=== PATIENT | male | born 1960 | race Caucasian/White ===

== ENCOUNTER 2020-08-17 14:52 | Outpatient (REF) | payer MEDICAID, SELFPAY | END 2020-08-17 14:53 | disposition home or self-care (01) | LOC: HO.LAB 14:52 | PROVIDERS: Visit Provider Internal Medicine | DX: Z20.828 Contact with and (suspected) exposure to other viral communicable diseases (principal) | CPT/HCPCS: C9803; U0003 ==

== ENCOUNTER → 2020-08-25 09:42 | Outpatient (BNVA) | payer MEDICAID, SELFPAY | PROVIDERS: PCP Internal Medicine; Visit Provider Physician Assistant | DX: Z76.89 Persons encountering health services in other specified circumstances (principal) ==

== ENCOUNTER 2021-04-15 14:16 | Outpatient (REF) | payer MEDICAID, SELFPAY | END 2021-04-15 14:17 | disposition home or self-care (01) | LOC: HO.LAB 14:16 | PROVIDERS: Visit Provider Internal Medicine | DX: Z20.822 Contact with and (suspected) exposure to COVID-19 (principal) | CPT/HCPCS: C9803; U0003; U0005 ==

== ENCOUNTER 2021-04-21 10:05 | Emergency (ER) | payer MEDICAID, SELFPAY ==
--- NOTE | ~2021-04-21 | CT_ITS ---
EXAMINATION: CT FACIAL BONES WITHOUT CONTRAST CLINICAL INFORMATION: Trauma. COMPARISON: None TECHNIQUE: Axial 3 mm thin and reformatted 1.5 mm thin sagittal coronal images of facial bones were obtained. This CT examination was performed using dose optimization techniques as appropriate, variously including the following: *Automated exposure control *Adjustment of mA and/or kV according to patient size (this includes techniques or standardized protocols for targeted exams where dose is matched to indication/reason for exam; i.e. extremities or head) *Use of iterative reconstruction technique DLP: 452 mGy-cm FINDINGS: There is no acute maxillofacial fracture. The pterygoid plates are intact. The zygomatic arches are intact. The lamina papyracea are intact. The orbital rims are intact. The paranasal sinuses are well-aerated. No air-fluid levels are seen. There is moderate deviation of the nasal septum to the left. The ostiomeatal complexes are clear. There is mild darell bullosa of left middle turbinate. The lamina papyracea are intact. The ethmoid roofs are symmetric. The carotid canals are normally covered by bone. No maxillary periapical disease is seen. The mastoid air cells and visualized middle ear cavities are well-aerated. The orbits are normal. The TMJs are unremarkable. The imaged portions of the brain demonstrate no acute abnormality. CT/CT facial bones wo con IMPRESSION: There is no visible maxillofacial and nasal bone fracture. There is moderate deviation of nasal septum to the left with a small bony spur. There is darell bullosa left middle turbinate. Visualized mandible is intact. The TM joints are intact.
[2021-04-21 10:37] VITALS: BP 123/70; PULSE 65; RESP 16; TEMP 36.6; O2SAT 98; BMI 28.2
--- NOTE | 2021-04-21 10:49 | ED_ITS ---
HPI - General Adult General Chief complaint: General Medical Stated complaint: facial pain Time Seen by Provider: 04/21/21 10:44 Source: patient Mode of arrival: ambulatory Limitations: no limitations History of Present Illness HPI narrative: 60 y/o [place]aguayan-speaking male presents to the ER with nose pain after he was accidentally elbowed in the nose in the middle of the night by his 8yo child who was sleeping with him. He denies nose bleed at the time, just pain. He woke up this morning with persistent pain and some swelling. He came to the ER for evaluation. He is not on anticoagulation. No other injuries. Denies headache. MD complaint: nasal trauma Onset (ago): hour(s) (8) Location: face Radiation: non-radiation Severity: severe Severity scale (1-10): 9 Quality: aching Pain Consistency: constant Relieving factors: cold therapy Exacerbating factors: other (palpatiokn) Associated symptoms: denies other symptoms Treatments prior to arrival: none Related Data Home Medications Medication Instructions Recorded Confirmed albuterol sulfate 90 mcg/actuation 2 puff INHALATION QID 11/17/20 11/17/20 aerosol inhaler fluticasone propionate 100 1 puff PO BID 11/17/20 11/17/20 mcg/actuation blister powder for inhalation (Flovent Diskus) tiotropium bromide 2.5 2 puff INHALATION DAILY 11/17/20 11/17/20 mcg/actuation mist for inhalation (Spiriva Respimat) Previous Rx's Medication Instructions Recorded bisacodyl 5 mg tablet,delayed 10 mg PO ONCE 1 Days #2 tab 10/07/20 release (Dulcolax (bisacodyl)) polyethylene glycol 3350 17 238 g PO ONCE 1 Days #238 g 10/07/20 gram/dose oral powder (Miralax) bisacodyl 5 mg tablet 5 mg PO BEDTIME 2 Days #2 tab 11/22/20 polyethylene glycol 3350 17 17 g PO DAILY 1 Days #238 g 11/22/20 gram/dose oral powder (Miralax) Allergies Allergy/AdvReac Type Severity Reaction Status Date / Time No Known Allergies Allergy Verified 09/27/20 11:37 Review of Systems Constitutional: Constitutional: Denies chills, Denies fever(s) and Denies headache(s) Eyes: Eyes: Reports no additional eye complaints ENT: Denies dizziness, Reports facial pain, Denies headache(s), Denies epistaxis, Denies mouth pain, Denies nasal congestion, Denies nasal discharge, Denies nasal obstruction, Denies neck pain and Reports nose pain Cardiovascular: Cardiovascular: Denies chest pain Respiratory: Respiratory: Denies cough Gastrointestinal: Gastrointestinal: Denies nausea and Denies vomiting Musculoskeletal: Musculoskeletal: Denies neck pain Integumentary/Breasts: Skin/Breast: Denies wounds Neurologic: Denies dizziness and Denies headache(s) Hematologic/Lymphatic: Hematologic/Lymphatic: Denies easy bleeding and Denies easy bruising PMFSH Past Medical History Attestation statement: The following information was validated with the patient. Medical History (Updated 04/21/21 @ 12:11 by MARCIA Rosa) Hx of hepatitis Insomnia Shortness of breath Surgical History (Updated 09/27/20 @ 11:38 by Audelia Cahcon, LIANET) No history of previous surgery Family History Family History (Updated 08/25/20 @ 09:49 by Jennifer Gaston PA-C) Father Kidney disease Mother No problems noted. Social History Social History (Updated 11/17/20 @ 12:40 by Audelia Chacon, LIANET) Household Members: Children Alcohol intake: never Cigarettes Per Day: 7 Advance Directives: No Advance Directives Information Provided: No Current occupational status: disabled Physical Exam Vital Signs: Vital Signs: Last Vital Signs Temp 98.3 F 04/21/21 11:04 Pulse 59 04/21/21 11:04 Resp 15 04/21/21 11:04 BP 129/63 04/21/21 11:04 Pulse Ox 97 04/21/21 11:04 Body Mass Index 28.2 Const: General: cooperative, healthy appearing, comfortable and no acute distress Nutritional Appearance: average body habitus Orie ntation/consciousness: patient oriented x3 Limitations: language barrier HENMT: Head: Yes normal to inspection, Yes normocephalic and Yes atraumatic Ears: hearing grossly normal bilaterally and external ears normal General nose exam: Abnormal external nose present nasal tenderness and nasal swelling, Abnormal nasal septum present hematoma on the left, no nasal discharge noted and no epistaxis Face and sinus: Yes normal facial exam, Yes sinuses nontender and Yes face symmetric Mouth: Normal oral and palatal mucosa present, lip normal and tongue normal Teeth and gingiva: dentition normal and gingiva normal Throat: Yes posterior oropharynx normal, Yes tonsils normal and Yes uvula midline Eyes: General: appearance normal, both eyes and all related structures Pupils: Equal, round and reactive pupils present EOM: EOMs intact bilaterally Neck: Neck: Yes normal visual inspection, Yes full ROM and Yes no lymphadenopathy Chest: Chest palpation & inspection: normal inspection of the chest Resp: Effort & Inspection: normal respiratory effort and able to speak in complete sentences Skin: General skin exam: no rashes or lesions noted Neuro: General: patient oriented x3 and gait normal Cranial nerves: Yes Equal, round and reactive pupils present Extrem: General: Yes normal to inspection Course Course Course Narrative: 60 y/o male presenting with nasal pain after his child accidentally elbowed him in the face in the middle of this night. Swelling of left sided terbinate noted but pink, no deep purple discoloration. Will get CT facial bones to assess for fracture. Reevaluation(s) Reevaluation #1: CT without fracture. Left septal deviation with darell bullosa left middle turbinate. - air of septum that will reaborb. No intervention required at this time. He is stable for discharge home with supportive care. Critical Care Time Critical Care Time Critical Care Time: No Discharge Plan Discharge Clinical Impression: Contusion of nose Qualifiers: Encounter type: initial encounter Qualified Code(s): S00.33XA - Contusion of nose, initial encounter Patient Disposition: Home, Self-Care Instructions: Nasal Contusion (ED) Additional Instructions: Your CT scan did not show any broken bone. Use ice to the area several times per day. Take Motrin and/or Tylenol as needed for pain. Follow up with your doctor as needed. Prescriptions: No Action bisacodyl [Dulcolax (bisacodyl)] 5 mg tablet,delayed release (DR/EC) 10 mg PO ONCE 1 Days Qty: 2 RF: 0 polyethylene glycol 3350 [Miralax] 17 gram/dose powder 238 g PO ONCE 1 Days Qty: 238 RF: 0 bisacodyl 5 mg tablet 5 mg PO BEDTIME 2 Days Qty: 2 RF: 0 polyethylene glycol 3350 [Miralax] 17 gram/dose powder 17 g PO DAILY 1 Days Qty: 238 RF: 0 Flovent Diskus 100 mcg/actuation blister with device 1 puff PO BID RF: 0 albuterol sulfate 90 mcg/actuation HFA aerosol inhaler 2 puff inhalation QID RF: 0 Spiriva Respimat 2.5 mcg/actuation mist 2 puff inhalation DAILY RF: 0 Print Language: Paraguayan
[2021-04-21 11:04] VITALS: BP 129/63; PULSE 59; RESP 15; TEMP 36.8; O2SAT 97
[2021-04-21] MEDS: Acetaminophen 325 MG TABLET 975 MG PO (11:13)
== END 2021-04-21 12:24 | disposition home or self-care (01) ==
PROVIDERS: Emergency Provider Emergency Medicine
DX: S00.33XA Contusion of nose, initial encounter (principal); W50.0XXA Accidental hit or strike by another person, initial encounter; Y93.84 Activity, sleeping; Y92.032 Bedroom in apartment as the place of occurrence of the external cause; Y99.9 Unspecified external cause status
CPT/HCPCS: 70486; 99284

== ENCOUNTER → 2021-05-12 10:20 | Outpatient (BNVA) | payer MEDICAID, SELFPAY | PROVIDERS: PCP Internal Medicine; Referring Provider Internal Medicine; Visit Provider Physician Assistant ==

== ENCOUNTER → 2021-08-02 09:07 | Day surgery (SDC) | payer MEDICAID, SELFPAY ==
[2021-07-26 09:04] VITALS: BMI 27.7
--- NOTE | 2021-08-01 10:04 | P.CONAN_ITS ---
HPI - Anesthesia Eval Consult details Narrative: 61yo M for Colonoscopy PMFSH Active Problems Active Problems: All Active Problems (Updated 07/26/21 @ 09:07 by Kathryn Nguyen RN) Encounter for screening colonoscopy (Acute) Asthma (Acute) Past Medical History Medical History (Updated 07/26/21 @ 09:07 by Kathryn Nguyen RN) COPD (chronic obstructive pulmonary disease) COVID-19 vaccine series completed Depression Hx of hepatitis Hyperlipidemia Insomnia Liver fibrosis Shortness of breath Family History Family History Father Kidney disease Mother No problems noted. Surgical History Surgical History No history of previous surgery Social History Social History Household Members: Children Household Members Other:: single father w/children ages 6 & 8 Are you a primary long term care administrator to a significant other at home: Yes Do you presently have visiting nurse or other home services: No Alcohol intake: never Patient Tobacco Use Status: Current everyday Tobacco user Tobacco use type: Cigarette Cigarettes Per Day: 5 Years Smoked: 42 Current occupational status: disabled Meds Allergies Allergy/AdvReac Type Severity Reaction Status Date / Time No Known Allergies Allergy Verified 07/25/21 10:59 Home Medications Medication Instructions Recorded Confirmed Last Taken Type albuterol sulfate 90 mcg/actuation 2 puff INHALATION QID 11/17/20 07/25/21 Unknown History aerosol inhaler fluticasone propionate 100 1 puff PO BID 11/17/20 07/25/21 Unknown History mcg/actuation blister powder for inhalation (Flovent Diskus) tiotropium bromide 2.5 2 puff INHALATION DAILY 11/17/20 07/25/21 Unknown History mcg/actuation mist for inhalation (Spiriva Respimat) hydroxyzine HCl 25 mg tablet 1 tab PO DAILY PRN 07/25/21 07/25/21 Unknown History montelukast 10 mg tablet 1 tab PO QPM 07/25/21 07/25/21 Unknown History Exam Exam Date and Time: August 01, 2021 1004 Height,Weight and Vital Signs: Height 5 ft 6 in Weight 78.018 kg Assessment and Plan Assessment Anesthesia Assessment: Chart Reviewed
--- NOTE | 2021-08-02 09:27 | PC.NURSE ---
patient ate lasagna yesterday 1600, still passing stool. Dr dimas says to reschedule. vince, interpretor went over prep instructions in detail. patient verbalized understanding
== END ==
PROVIDERS: Visit Provider Internal Medicine Gastroenterology
DX: Z12.11 Encounter for screening for malignant neoplasm of colon (principal); Z53.8 Procedure and treatment not carried out for other reasons

== ENCOUNTER 2023-12-24 09:46 | Outpatient (REF) | payer MEDICAID, SELFPAY ==
[2023-12-24 11:40] LABS: MANUAL DIFF FLAG NO
[2023-12-24 11:47] LABS: Basophils Absolute Auto 0.1 X10*3/uL (0.0-0.2); Basophils Percent Auto 0.6 % (0-2); Eosinophils Absolute Auto 0.2 X10*3/uL (0.0-0.4); Eosinophils Percent Auto 1.9 % (0-4); Hematocrit 46.4 % (42.0-52.0); Hemoglobin 15.5 g/dl (14.0-18.0); Imm Gran Abs Auto 0.04 X10*3/uL (0.00-0.03); Imm Gran Pct Auto 0.5 % (0.0-0.4); Lymphocytes Absolute Auto 2.6 X10*3/uL (1.2-4.9); Mean Corpuscular HGB Conc 33.4 g/dl (31.0-36.0); Mean Corpuscular Hemoglobin 29.1 pg (27.0-33.0); Mean Corpuscular Volume 87.1 fL (80.0-98.0); Monocytes Absolute Auto 0.6 X10*3/uL (0.1-1.2); Monocytes Percent Auto 7.9 % (2-11); Neutrophils Absolute Auto 4.4 x10*3/uL (2.0-8.3); Neutrophils Percent Auto 56.1 % (45-73); Platelet Count 306 X10*3/uL (160-400); Red Blood Count 5.33 X10*6/uL (4.60-5.80); Red Cell Distribution Width 14.6 % (11.0-16.0); White Blood Count 7.9 X10*3/uL (4.8-10.8)
[2023-12-24 13:11] LABS: Alanine Aminotransferase 20 U/L (0-40); Albumin Level 4.2 g/dL (3.5-5.0); Alkaline Phosphatase 88 U/L (39-117); Anion Gap 11 (12-20); Aspartate Amino Transferase 17 U/L (5-37); Bilirubin Direct 0.1 mg/dL (0.0-0.5); Bilirubin Total 0.3 mg/dL (0.0-1.0); Blood Urea Nitrogen 23 mg/dL (9-16); Carbon Dioxide 28 mmol/L (22-29); Chloride 103 mmol/L (96-108); Cholesterol 239 mg/dL (<200); Estimated Glomerular Filt Rate > 60; Glucose Random 71 mg/dL (60-115); HDL Cholesterol 45 mg/dL (>40); LDL Cholesterol Calculated 169 mg/dL (<100); Potassium 4.6 mmol/L (3.3-5.1); Sodium 137 mmol/L (135-145); Total Protein 8.1 g/dL (6.5-8.0); Triglycerides 127 mg/dL (<150)
[2023-12-26 20:03] LABS: Alpha Fetoprotein 1.4 ng/mL (<6.1)
== END 2023-12-24 09:47 | disposition home or self-care (01) ==
LOC: HO.HHCL 09:46
PROVIDERS: Visit Provider Internal Medicine
DX: B18.2 Chronic viral hepatitis C (principal); K74.00 Hepatic fibrosis, unspecified
CPT/HCPCS: 36415; 80048; 80061; 80076; 82105; 85025

== ENCOUNTER 2024-07-11 10:51 | Outpatient (REF) | payer MEDICAID, SELFPAY ==
[2024-07-11 11:56] LABS: TSH reflex Free T4 0.84 uIU/mL (0.32-4.0)
[2024-07-11 13:13] LABS: Folate 9.8 ng/mL (> or = 4.0); Vitamin B12 386 pg/mL (200-900)
[2024-07-16 16:57] LABS: Methylmalonic Acid 148 nmol/L (69-390)
== END 2024-07-11 10:52 | disposition home or self-care (01) ==
LOC: HO.LAB 10:51
PROVIDERS: PCP Internal Medicine; Visit Provider Internal Medicine
DX: M79.604 Pain in right leg (principal); M79.605 Pain in left leg
CPT/HCPCS: 36415; 82607; 82746; 83090; 83921; 84443

== ENCOUNTER 2024-07-31 10:05 | Outpatient (REF) | payer MEDICAID, SELFPAY | END 2024-07-31 10:06 | disposition home or self-care (01) | LOC: HO.HOSX 10:05 | PROVIDERS: Visit Provider Physician Assistant | DX: Z13.89 Encounter for screening for other disorder (principal) ==

== ENCOUNTER 2024-09-16 13:45 | Outpatient (REF) | payer MEDICAID, SELFPAY ==
--- NOTE | ~2024-09-16 | XR_ITS ---
EXAMINATION: XR KNEE 4 OR MORE VIEWS RIGHT HISTORY: pain after fall COMPARISON: There are no prior studies available for comparison. FINDINGS: Four views of the right knee are submitted. Osseous mineralization is normal. There is no fracture or dislocation. The joint spaces are preserved. The soft tissues are unremarkable. There is no joint effusion. XR/XR knee RT 4V IMPRESSION: Unremarkable examination of the right knee. Electronically signed by: Dominick Herrera MD 09/16/2024 02:01 PM [facility]
== END 2024-09-16 13:46 | disposition home or self-care (01) ==
LOC: HO.HHCX 13:45
PROVIDERS: Visit Provider Internal Medicine
DX: M25.561 Pain in right knee (principal)
CPT/HCPCS: 73564

== ENCOUNTER → 2024-09-16 13:45 | Outpatient (BNV) | payer MEDICAID, SELFPAY | PROVIDERS: Visit Provider Radiology Diagnostic Radiology | DX: M25.561 Pain in right knee (principal) | CPT/HCPCS: 73564 ==

== ENCOUNTER 2024-09-23 09:20 | Emergency (ER) | payer MEDICAID, SELFPAY ==
--- NOTE | ~2024-09-23 | XR_ITS ---
EXAMINATION: XR KNEE, RIGHT CLINICAL INFORMATION: injury COMPARISON: 09/16/2024. TECHNIQUE: Four views of the right knee. FINDINGS: No fracture or joint effusion. Alignment is anatomic. Joint spaces are maintained. No abnormal soft tissue calcification. XR/XR knee RT 4V IMPRESSION: No acute findings right knee. No joint effusion. Electronically signed by: Kings Aldana MD 09/23/2024 10:19 AM [facility] [place]
[2024-09-23 09:31] VITALS: BP 116/65; PULSE 60; RESP 16; TEMP 36.6; O2SAT 96; BMI 24.2
--- NOTE | 2024-09-23 12:01 | ED_ITS ---
HPI - Extremity Injury (Lower) General Chief Complaint: Extremity Injury, Lower Stated Complaint: R leg injury Time Seen by Provider: 09/23/24 11:24 Source: patient, RN notes reviewed and old records reviewed Mode of arrival: ambulatory History of Present Illness ED Provider: Genna Baker PA-C HPI Narrative: 64 y/o male w/PMHx asthma, presents to the ED c/o right knee pain x4 days s/p slip & fall landing on metal. Denies head trauma or LOC. Endorses worsening pain in the morning and upon movement. Has been ambulatory with pain. States he had previous xray done on day of inital injury which he does not know the result of & was referred to specialist however here today due to worsening pain. Denies injury to other area, numbness, tingling, weakness Related Data Home Medications ?Medication ?Instructions ?Recorded ?Confirmed albuterol sulfate 90 mcg/actuation 2 puff inhalation QID PRN Wheezing 11/17/20 06/12/22 aerosol inhaler fluticasone propionate 100 1 puff PO BID 11/17/20 06/12/22 mcg/actuation blister powder for inhalation (Flovent Diskus) tiotropium bromide 2.5 2 puff inhalation DAILY 11/17/20 06/12/22 mcg/actuation mist for inhalation (Spiriva Respimat) hydroxyzine HCl 25 mg tablet 1 tab PO DAILY PRN Anxiety 07/25/21 06/12/22 montelukast 10 mg tablet 1 tab PO QPM 07/25/21 06/12/22 Previous Rx's ?Medication ?Instructions ?Recorded bisacodyl 5 mg tablet 5 mg PO BEDTIME 2 days #2 tabs 11/22/20 polyethylene glycol 3350 17 17 g PO DAILY colon prep 1 day 11/22/20 gram/dose oral powder (Miralax) #238 grams bisacodyl 5 mg tablet,delayed 10 mg (2 x 5 mg) PO ONCE Bowel 06/12/22 release (Dulcolax (bisacodyl)) Preparation 1 day #2 tabs polyethylene glycol 3350 17 238 g PO ONCE 1 day #238 grams 06/12/22 gram/dose oral powder (Miralax) acetaminophen 500 mg tablet 500 mg PO Q6H PRN fever or pain 09/23/24 (Tylenol Extra Strength) #14 tabs naproxen 500 mg tablet 500 mg PO BID PRN pain 10 days #20 09/23/24 tabs Allergies Allergy/AdvReac Type Severity Reaction Status Date / Time No Known Allergies Allergy Verified 09/23/24 09:36 Review of Systems Review of Systems: Yes all other systems are reviewed and are negative Constitutional: Constitutional: Reports as per [facility] Past Medical History Attestation statement: The following information was validated with the patient. Source: old records reviewed Medical History COVID-19 vaccine series completed COPD (chronic obstructive pulmonary disease) Hyperlipidemia Liver fibrosis Depression Insomnia Hx of hepatitis Shortness of breath Surgical History No history of previous surgery Family History Family History Father Kidney disease Mother No problems noted. Social History Social History Household Members: Children Household Members Other:: single father w/children ages 6 & 8 Are you a primary child care leader to a significant other at home: Yes Do you presently have visiting nurse or other home services: No Alcohol intake: never Patient Tobacco Use Status: Current everyday Tobacco user Tobacco use type: Cigarette Cigarettes Per Day: 5 Years Smoked: 42 Advance Directives: No Advance Directives Information Provided: Yes Current occupational status: disabled Physical Exam Vital Signs: Vital Signs: Last Vital Signs Temp 98 F 09/23/24 09:31 Pulse 60 09/23/24 09:31 Resp 16 09/23/24 09:31 BP 116/65 09/23/24 09:31 Pulse Ox 96 09/23/24 09:31 O2 Del Method Room Air 09/23/24 09:31 BMI result Body Mass Index 24.2 Const: General: cooperative, healthy appearing and no acute distress Orientation/consciousness: patient oriented x3 Limitations: no limitations HEENT: Head: Yes normal to inspection and Yes atraumatic Ears: hearing grossly normal bilaterally General nose exam: Normal external nose present Face and sinus: Yes normal facial exam Eyes: General: appearance normal, both eyes and all related structures EOM: EOMs intact bilaterally Neck: Neck: Yes normal visual inspection and Yes no meningeal signs Resp: Effort & Inspection: normal respiratory effort and no respiratory distress Cardio: Rate: regular rate Skin: Rashes: no rashes Wounds: no wounds Neuro: General: patient oriented x3, tone normal and no meningeal signs Cranial nerves: Yes CN's II-XII intact bilaterally Gait exam (Neuro): Normal gait present Extrem: Other: Right knee without appreciable swelling/erythema or warmth. Diffusely tender to palpation. Limited ROM secondary to pain. Neurovascularly intact distally. No appreciable laxity. no crepitus General: Yes normal to inspection Course Course Course Narrative: XR knee RT 4V IMPRESSION: No acute findings right knee. No joint effusion. > Ravi wrap applied for comfort and stability. Recommended close orthopedic/PCP follow-up. May need further imaging. Results discussed with patient including worrisome signs and symptoms and strict return precautions, and when to return to the emergency department. They verbalized understanding and feel safe for discharge at this time. Medical Decision Making Medical Decision Making [facility] Narrative: 64 y/o male w/PMHx asthma, presents to the ED c/o right knee pain x4 days s/p slip & fall landing on metal. On exam vital signs stable, NAD, nontoxic appearing, physical exam as noted above. Concern for tendon/ligamental vs meniscus injury. Rule out fracture. No evidence of septic joint/arthritis. Low suspicion for DVT Plan: X-ray, pain control Please refer to course for remaining clinical decision making, interpretation of labs/imaging results, and discussions with consultants and/or family members. Differential Diagnosis Differential Diagnoses: The differential diagnosis associated with the presentation includes As above Independent Interpretation I performed an independent interpretation of an: Plain X-Ray Radiology Impression Discussion of test interpretation with radiology: I have reviewed the radiologist's reading. External Record Review External record reviewed: Inpatient record, Office record, Outpatient record, Prior outpatient labs, Prior outpatient radiology, Primary care record and Outside ED record Tests considered The following testing was considered but not selected: As above Prescription Management I considered prescription management with: Pain Medication Social Determinants Patient?s care significantly limited by Social Determinants of Health including: Other Social Determinant of Health Discharge Plan Discharge Clinical Impression: Injury of knee Patient Disposition: Home, Self-Care Instructions: Knee Pain (ED) Additional Instructions: Your x-ray does not show a fracture Please wear Ravi wrap for comfort and stability/compression Ice and elevate Naproxen as an anti-inflammatory/pain medicine, take with food In addition take Tylenol Follow-up with music specialist and your doctor If pain persists or worsen or becomes unbearable return to the ED Prescriptions: New acetaminophen [Tylenol Extra Strength] 500 mg tablet 500 mg PO Q6H PRN (Reason: fever or pain) Qty: 14 0RF naproxen 500 mg tablet 500 mg PO BID PRN (Reason: pain) 10 Days Qty: 20 0RF No Action bisacodyl 5 mg tablet 5 mg PO BEDTIME 2 Days Qty: 2 0RF polyethylene glycol 3350 [Miralax] 17 gram/dose powder 17 g PO DAILY 1 Days Qty: 238 0RF Rx Instructions: Mix Miralax with 64 oz(8 cups) of Crystal light. Take 2 tablets of Dulcolax qt 12 pm. Wait to have your 1st bowel movement, then begin drinking Miralax. Drink a glass of Miralax every 10-15 minutes until you are finished. You will drink at least another 4 cups of clear liquid of your choice over the next 2 hours. Please drink as many clear liquids as possible You may have clear liquids up to four hours before your procedure Flovent Diskus 100 mcg/actuation blister with device 1 puff PO BID albuterol sulfate 90 mcg/actuation HFA aerosol inhaler 2 puff inhalation QID PRN (Reason: Wheezing) Spiriva Respimat 2.5 mcg/actuation mist 2 puff inhalation DAILY montelukast 10 mg tablet 1 tab PO QPM hydroxyzine HCl 25 mg tablet 1 tab PO DAILY PRN (Reason: Anxiety) bisacodyl [Dulcolax (bisacodyl)] 5 mg tablet,delayed release (DR/EC) 10 mg PO ONCE 1 Days Qty: 2 0RF Rx Instructions: Take 2 tablets at 12:00pm the day before your procedure, bowel prep polyethylene glycol 3350 [Miralax] 17 gram/dose powder 238 g PO ONCE 1 Days Qty: 238 0RF Rx Instructions: Take as directed by mouth, bowel prep Referrals: [facility] [place] [facility] [Provider Group] - 1 week Rupinder Cronin MD [Primary Care Provider] - Print Language: Georgian
[2024-09-23 12:22] VITALS: BP 142/87; PULSE 56; RESP 18; TEMP 36.8; O2SAT 97
[2024-09-23] MEDS: NaPROXEN 500 MG TABLET PO (12:22)
[2024-09-23 12:23] VITALS: BP 142/87; PULSE 56; RESP 18; TEMP 36.8; O2SAT 97
== END 2024-09-23 12:23 | disposition home or self-care (01) ==
PROVIDERS: Emergency Provider Emergency Medicine Emergency Medical Services; PCP Internal Medicine
DX: S89.91XA Unspecified injury of right lower leg, initial encounter (principal); W01.198A Fall on same level from slipping, tripping and stumbling with subsequent striking against other object, initial encounter; M25.561 Pain in right knee; Y93.9 Activity, unspecified; Y92.9 Unspecified place or not applicable; Y99.9 Unspecified external cause status
CPT/HCPCS: 73564; 99283

== ENCOUNTER → 2024-09-23 10:13 | Outpatient (BNV) | payer MEDICAID, SELFPAY | PROVIDERS: PCP Internal Medicine; Visit Provider Radiology Diagnostic Radiology | DX: S37.001A Unspecified injury of right kidney, initial encounter (principal) | CPT/HCPCS: 73564 ==

== ENCOUNTER 2024-09-25 09:17 | Outpatient (REF) | payer MEDICAID, SELFPAY ==
--- NOTE | 2024-09-25 09:30 | PFT_ITS ---
Flows: FEV1: 95 % of predicted at 2.88 L FVC: 100 % of predicted at 3.93 L FEV1/FVC: 73 % Bronchodilator response: Absent Volumes: Total lung capacity: 95 % of predicted at 5.99 L Residual volume: 97 % of predicted at 1.98 L Slow vital capacity: 93 % of predicted at 4.01 L Expiratory reserve volume: 139 % of predicted at 1.47 L Diffusion capacity: Mildly decreased, corrects to normal after adjustment for alveolar ventilation. Impression: No obstructive or restrictive ventilatory defect. No bronchodilator response. Decreased diffusion capacity suggests emphysema. MTDD
--- OUTSIDE RECORDS SUMMARY | 2024-09-25 12:27 | XMS_ITS | Encounter Summary ---
Author Organization [employer] Address [address] [place] [address] Care Team Providers Care Supervisor Scrap Preparation Name Role Phone Rupinder Cronin MD Primary Care Provide r Encounter Details Date Type Department Care Team (Latest Contact Info) Description 09/05/2024 Travel Social History Tobacco Use Types Packs/Day Years Used Date Smoking Tobacco: Every Day Cigarettes Passive Smoke Exposure: Past Smokeless Tobacco: Never Alcohol Use Standard Drinks/Week Comments Never 0 (1 standard drink = 0.6 oz pur e alcohol) Depression Answer Date Recorded Patient Health Questionnaire-9 Score 0 11/23/2023 Patient Health Questionnaire-9 Score 0 11/23/2023 Last PHQ-9: Questionnaire Data Not on file 0 11/23/2023 Housing Stability Answer Date Recorded What is your housing situation today? I have maribel bonilla 11/23/[address] you li ve. Do you have problems with any of the following? I am not sure 11/23/2023 Food Insecurity Answer Date Recorded Within the past 12 months, y ou worried that your food would run out before you got money to buy more: Never True 11/23/2023 Within the past 12 months,th e food you bought just didn't last and you didn't have enough money to get more: Never True Transportation Answer Date Recorded In the past 12 months, has l ack of transportation kept you from medical appts, meetings, work or from getting things needed for daily living? No 11/23/2023 Utilities Answer Date Recorded In the past 12 months, has t he electric, gas, oil or water company threatened to shut off services in your home? No 11/23/2023 Depression Answer Date Recorded Patient Health Questionnaire-2 Score 0 11/23/2023 Sex and Gender Information Value Date Recorded Sex Assigned at Male 06/26/2022 10:21 AM EDT Legal Sex Male 10:21 AM EDT Gender Identity Choose not to disclose 10:21 AM EDT Sexual Orientation Choose not to disclose 2021 10:21 AM EDT documented as of this encounter Plan of Treatment Not on file documented as of this encounter Visit Diagnoses Not on filedocumented in this encounter Additional Health Concerns Assessment Noted Time PHQ-9 Depression Total Score: 0 11/23/19 24 10:27 AM EDT documented as of this encounter Care Teams Supervisor Scrap Preparation Relationship Specialty Start Date End Date Rupinder Cronin MD [address] [place] [address] PCP - General Family Medicine 07/22/18 documented as of this encounter
--- OUTSIDE RECORDS SUMMARY | 2024-09-25 12:28 | XMS_ITS | Encounter Summary ---
Author Organization [employer] Address [address] [place] [address] Care Team Providers Care Port Surveyor Name Role Phone Rupinder Cronin MD Primary Care Provide r Reason for Visit * Reason Comments Med Refill Encounter Details Date Type Department Care Team (Late st Contact Info) Description 09/06/2024 Refill [facility] [address] [place], [place] [phone] Rupinder Cronin MD [address] [place] [address] Vitamin B12 deficiency Social History Tobacco Use Types Packs/Day Years [...] documented as of this encounter Visit Diagnoses Diagnosis Vitamin B12 deficiency Other B-complex deficiencies documented in this encounter Additional Health Concerns Assessment Noted Time PHQ-9 Depression Total Score: 0 11/23/19 24 10:27 AM EDT documented as of this encounter Care Teams Port Surveyor Relationship Specialty Start Date End Date Rupinder Cronin MD [address] [place] [id number] PCP - General Family Medicine 07/22/18 documented as of this encounter
--- OUTSIDE RECORDS SUMMARY | 2024-09-25 12:28 | XMS_ITS | Clinical Summary ---
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 Do not crush, chew, or split. 180 tablet 1 023 Active varenicline (Chantix) 1 MG tabletIndications :Smoker Take 1 tablet (1 mg) by mouth 2 times daily. Take with full glass of water. 60 tablet 1 023 Active Varenicline Tartrate, Starter, (Chantix Starting Month ) 0.5 MG X 11 & 1 MG X 42 tablet therapy packIndications:Natividad morales Take 1 tablet by mouth in the morning. 53 each 023 Active hydrOXYzine HCl (Atarax) 25 MG tabletIndications :Anxiety with depression Take 1 tablet by mouth once daily as needed 30 tablet 3 023 Active mirtazapine (Remeron) 15 MG tabletIndications :Anxiety with depression Take 1 tablet (15 mg) by mouth at bedtime. 90 tablet 023 Active montelukast (Singulair) 10 MG tabletIndications :Allergy, sequela Take 1 tablet by mouth once daily 90 tablet 2 024 Active Spacer/Aero-Holdi ng Chambers (OptiChamber Shahnaz) misc 1 each every 4 (four) hours if needed (asthma). 1 each 024 Active atorvastatin (Lipitor) 40 MG tabletIndications :Hyperlipidemia, unspecified hyperlipidemia type Take 1 tablet by mouth once daily 90 tablet 1 024 Active azithromycin (Zithromax) 250 MG tabletIndications :Chronic obstructive pulmonary disease with acute exacerbation (CMS/HCC) Take 2 tabs PO daily x 1d then 1 tab PO daily on D2 to D5 6 tablet 025 Active Mometasone Furoate (Asmanex HFA) 100 MCG/ACT aerosolIndication s:Chronic obstructive pulmonary disease with acute exacerbation (CMS/HCC) Inhale 1 puff in the morning and at bedtime. Rinse mouth with water after use to reduce aftertaste and incidence of candidiasis. Do not swallow., 13 g 3 025 Active tiotropium (Spiriva Respimat) 2.5 MCG/ACT inhalerIndication s:Chronic obstructive pulmonary disease with acute exacerbation (CMS/HCC) Inhale 2 puffs once daily 1 each 2 025 Active albuterol 108 (90 Base) MCG/ACT inhalerIndication s:Chronic obstructive pulmonary disease with acute exacerbation (CMS/HCC) Inhale 2 puffs every 4 (four) hours if needed for wheezing. 18 g 2 025 2025 Active cyanocobalamin (Vitamin B-12) 1000 MCG tabletIndications :Vitamin B12 deficiency TAKE 1 TABLET BY MOUTH ONCE DAILY 90 tablet 025 Active ibuprofen 800 MG tabletIndications :Acute pain of right knee,Injury of right knee, initial encounter Take 1 tablet (800 mg) by mouth every 8 (eight) hours if needed for mild pain for up to 10 days. 40 tablet 025 2024 Active lidocaine (Lidoderm) 5 % patchIndications: Acute pain of right knee,Injury of right knee, initial encounter Apply 1 patch topically Once per day. Remove & discard patch within 12 hours or as directed by MD. 30 patch 025 Active albuterol 108 (90 Base) MCG/ACT inhalerIndication s:Chronic obstructive pulmonary disease, unspecified COPD type (CMS/HCC) Inhale 2 puffs every 6 (six) hours if needed for wheezing or shortness of breath. 18 g 1 023 2024 Discontinued fluticasone (Flovent) 110 MCG/ACT inhalerIndication s:Chronic obstructive pulmonary disease, unspecified COPD type (CMS/HCC) Inhale 1 puff in the morning and at bedtime. Rinse mouth with water after use to reduce aftertaste and incidence of candidiasis. Do not swallow. 12 g 11 023 2024 Discontinued Mometasone Furoate (Asmanex HFA) 100 MCG/ACT aerosol Inhale 2 puffs 2 times daily. Inhale 1 puff in the morning and at bedtime. Rinse mouth with water after use to reduce aftertaste and incidence of candidiasis. Do not swallow., 13 g 11 024 2024 Discontinued(R eorder (will not trigger notification to Pharmacy)) albuterol 108 (90 Base) MCG/ACT inhalerIndication s:Chronic obstructive pulmonary disease, unspecified COPD type ([facility]) Inhale 2 puffs every 4 (four) hours if needed for wheezing. 18 g 2 024 2024 Discontinued(R eorder (will not trigger notification to Pharmacy)) tiotropium (Spiriva Respimat) 2.5 MCG/ACT inhalerIndication s:Chronic obstructive pulmonary disease, unspecified COPD type ([facility]) Inhale 2 puffs once daily 1 each 2 024 2024 Discontinued(R eorder (will not trigger notification to Pharmacy)) azithromycin (Zithromax) 250 MG tablet Take 2 tabs PO daily x 1d then 1 tab PO daily on D2 to D5 6 tablet 024 2024 Discontinued(R eorder (will not trigger notification to Pharmacy)) cyanocobalamin (Vitamin B-12) 1000 MCG tabletIndications :Vitamin B12 deficiency Take 1 tablet (1,000 mcg) by mouth Once per day. 30 tablet 1 024 2024 Discontinued predniSONE (Deltasone) 20 MG tabletIndications :Chronic obstructive pulmonary disease with acute exacerbation ([facility]) Take 2 tablets (40 mg) by mouth Once per day for 5 days. 10 tablet 025 2024 Active Problems Problem Noted Date Diagnosed Date Acute pain of right knee 09/16/2024 Right knee injury 09/16/2024 Assessment & Plan (09/16/2024 2:08 PM EST): Elevate knee apply ice and rest Crutches will be prescribe Ibuprofen 800mg Q 8hrs Lidocaine patch XRAY and STAT referral to orthopedics Bilateral leg pain 06/16/2024 Chronic bursitis of right shoulder 06/16/2024 Chronic right shoulder pain 06/16/2024 Chronic neck pain 06/16/2024 COPD with acute exacerbation 05/05/2024 Assessment & Plan (05/05/2024 4:46 PM EDT): Viral tests are NEG today. Ro bronchitis, I will rx z-pack Continue albuterol inh tid x 5d + asmanex bid. Call back prn if sxs do not resolve, may need PRD. Advised to not start smoking again Take tylenol prn BUSH, sore throat, CP. Screening for lung cancer 11/23/2023 Colon cancer screening 11/23/2023 Chronic obstructive lung disease 12/29/2022 Smoker 12/29/2022 Hepatic fibrosis 02/18/2018 Intra-abdominal lymphadenopathy 02/18/2018 Chronic hepatitis C 12/20/2017 Hyperlipidemia 11/08/2017 Assessment & Plan (06/16/2024 4:14 PM EDT): Today extensive discussion was done about life style modifications I advise healthy diet (low calorie) and cardiovascular exercise Insomnia 11/08/2017 Mixed anxiety and depressive disorder 11/24/2014 Thyrotoxicosis 01/05/2012 Encounters Date Type Department Care Team Description 09/23/2024 Orders Only [facility] External Provider, [facility] [place] 09/16/2024 1:00 PM EST Office Visit [facility] [address] [place] [phone] Rupinder Cronin MD Acute pain of right knee (Primary Dx); Injury of right knee, initial encounter 09/06/2024 Refill [facility] [address] [place] [phone] Rupinder Cronin MD Vitamin B12 deficiency 09/05/2024 2:00 PM EST Office Visit [facility] [address] [phone] [place], ADITHYA Estrella Chronic obstructive pulmonary disease with acute exacerbation (CMS/HCC) (Primary Dx); Chronic obstructive pulmonary disease, unspecified COPD type (CMS/HCC) 09/05/2024 Travel 07/16/2024 Telephone [facility] [address] [place], [place] [phone] Sarina Newell, RN Results 07/15/2024 Orders Only [address] [phone] Rupinder Cronin MD Vitamin B12 deficiency (Primary Dx) 07/09/2024 Telephone [facility] [address] [place], [place] [phone] Rupinder Cronin MD from Last 3 Months Immunizations Name Administration Dates Next Due Influenza injectable quadriv alent IIV4 with preservative 08/24/2022,08/11/2016,08/17/2015 Influenza injectable quadriv alent preservative free 05/23/2019 Pfizer Covid-19 Vaccine 12+ 11/23/2023, Pneumococcal Conjugate PCV 13 08/30/2015 Pneumococcal Conjugate PCV 20 11/23/2023 Tdap 01/10/2018 Social History Tobacco Use Types Packs/Day Years Used Date Smoking Tobacco: Every Day Cigarettes Passive Smoke Exposure: Past Smokeless Tobacco: Never Tobacco Cessation:Ready to Q uit: Not Asked; Counseling Given: Not Answered Alcohol Use Standard Drinks/Week Comments Never 0 [...] not to disclose 2021 10:21 AM EDT Last Filed Vital Signs Vital Sign Reading Time Taken Comments Blood Pressure 118/80 09/16/2024 12:55 PM EST Pulse 52 09/16/2024 12:55 PM EST Temperature 36.4 ??C (97.6 ??F) 09/16/2024 12:[address] Respiratory Rate 18 09/16/2024 12:55 PM EST Oxygen Saturation 98% 09/16/2024 12:55 PM EST Inhaled Oxygen Concentration - - Weight 77.1 kg (170 lb) 09/16/2024 12:55 PM EST Height 170.2 cm (5' 7 ) 09/16/2024 12:55 PM EST Body Mass Index 26.63 09/16/2024 12:55 PM EST Plan of Treatment Health Maintenance Due Date Last Done Comments CT Colonography 1960 Colonoscopy 1960 FIT 1960 FOBT 1960 Sigmoidoscopy 1961 Alcohol/Substance Use Screening 1973 Hepatitis A Vaccines (1 of 2 - Risk 2-dose series) 1980 Zoster Vaccines (1 of 2) 2011 Hepatitis B Vaccines (1 of 3 - Risk 3-dose series) 2021 RSV Patients and Patients Aged 60 years or older (1 - Risk 60-74 years 1-dose series) 2021 COVID-19 Vaccine ( season) 2024 11/23/2023, 08/24/2022, 09/02/2021 Influenza Vaccine (#1) 2024 2, 05/23/2019, 08/11/2016, Additional history exists Depression Screening 11/22/2024 11/23/2023, 11/23/19 24 SDOH Screening 11/22/2024 11/23/2023 Tobacco Screening 09/16/2025 09/16/2024 Colorectal Cancer Screening 02/16/2027 FIT DNA/Cologuard 02/16/2027 02/17/2024 DTaP/Tdap/Td Vaccines (2 - Td or Tdap) 01/11/2028 01/10/2018 Lipid Panel 12/23/2028 12/24/2023, 02/24, 12/22/2020 HIV Screening Completed 03/08/2022 Pneumococcal Vaccine: 50+ Years Completed 11/23/2023, 08/30/2015 HIB Vaccines Aged Out No longer eligi ble based on patient's age to complete this topic HPV Vaccines Aged Out No longer eligi ble based on patient's age to complete this topic IPV Vaccines Aged Out No longer eligi ble based on patient's age to complete this topic Meningococcal Vaccine Aged Out No ervin gertrudis eligible based on patient's age to complete this topic RSV under 20 months Aged Out No longe r eligible based on patient's age to complete this topic Rotavirus Vaccines Aged Out No longer eligible based on patient's age to complete this topic Procedures Procedure Name Priority Date/Time Associated Diagnosis Comments XR KNEE 4+ VIEWS RIGHT Routine 09/23/2024 10:13 AM EST XR KNEE 4+ VIEWS RIGHT Routine 09/16/2024 1:45 PM EST Acute pain of right knee Injury of right knee, initial encounter POCT INFLUENZA B (ID NOW RAPID MOLECULAR) Routine 09/05/2024 4:22 PM EST Chronic obstructive pulmonary disease with acute exacerbation (CMS/HCC) POCT INFLUENZA A (ID NOW RAPID MOLECULAR) Routine 09/05/2024 4:22 PM EST Chronic obstructive pulmonary disease with acute exacerbation (CMS/HCC) POC KOTHARI ID NOW STREP A Routine 09/05/2024 4:22 PM EST Chronic obstructive pulmonary disease with acute exacerbation (CMS/HCC) POCT RAPID COVID ANTIGEN Routine 09/05/2024 4:22 PM EST Chronic obstructive pulmonary disease with acute exacerbation (CMS/HCC) HOMOCYSTEINE Routine 07/11/2024 11:13 AM EST Bilateral leg pain METHYLMALONIC ACID Routine 07/11/2024 11 :13 AM EST Bilateral leg pain TSH W/REFLEX TO FT4 Routine 07/11/2024 1 1:13 AM EST Bilateral leg pain VITAMIN B12/FOLATE, SERUM PANEL Routine 07/11/2024 11:13 AM EST Bilateral leg pain LAB COLOGUARD?? COLON CANCER SCREEN Routine 02/17/2024 11:08 AM EDT Colon cancer screening LIPID PANEL, STANDARD Routine 12/24/2023 9:47 AM EDT Chronic hepatitis C without hepatic coma (CMS/HCC) Hepatic fibrosis HIV 1/2 ANTIGEN/ANTIBODY, FOURTH GENERATION W/RFL Routine 03/08/2022 2:33 PM EDT from Last 3 Months or Most Recently Relevant to Health Maintenance Results * XR Knee 4+ Views Right (09/23/2024 10:13 AM EST) Only the most recent of2 resultswithin the time period is included. Anatomical Region Laterality Modality Lower Extremities, Knee Right [facility] 09/23/2024 10:1 3 AM EST Narrative 09/23/2024 10:23 AM EST ? [facility] [place] ?[address] ?[place] [address] ?XRay Report ? Signed ? Patient: Machado,Memo L ?MR#: [id number] ?? 5 ? : 1960 ?Acct:[id number] ? Age/Sex: 64 / M ?ADM Date: /28/25 ? Loc: HO.ED ? Attending Dr: ? Ordering Physician: Generic ED Physician ?? Date of Service: 09/23/24 ?? Procedure(s): XR knee RT 4V ?? Accession Number(s): [id number] ? cc: Rupinder Cronin MD; Generic ED Physician ? EXAMINATION: ?? XR KNEE, RIGHT ? CLINICAL INFORMATION: ?? injury ? COMPARISON: ?? 09/16/2024. ? TECHNIQUE: ?? Four views of the right knee. ? FINDINGS: ?? No fracture or joint effusion. Alignment is anatomic. Joint spaces are ?? maintained. No abnormal soft tissue calcification. ? XR/XR knee RT 4V ?? IMPRESSION: ?? No acute findings right knee. No joint effusion. ? Electronically signed by: ??Kings Aldana MD ??09/23/2024 10:19 AM EST RP ? Dictated By: ?Kings Aldana MD ? Signed By: ?<Electronically signed by Kings Aldana MD in OV> ?09/23/24 1019 ? DD/ 1013 ? TD/TT: 09/23/24 1016 ? Snag Grinder: ? Procedure Note Naya, Image - 09/23/2024 [place] [address] XRay Report Signed Patient: Memo Machado LMR#: [id number] 5 : 1960cct:[id number] Age/Sex: 64 / MADM Date: 09/23/24 Loc: HO.ED Attending Dr: Ordering Physician: Generic ED Physician Date of Service: 09/23/24 Procedure(s): XR knee RT 4V Accession Number(s): [id number] cc: Rupinder Cronin MD; Generic ED Physician EXAMINATION: XR KNEE, RIGHT CLINICAL INFORMATION: injury COMPARISON: 09/16/2024. TECHNIQUE: Four views of the right knee. FINDINGS: No fracture or joint effusion. Alignment is anatomic. Joint spaces are maintained. No abnormal soft tissue calcification. XR/XR knee RT 4V IMPRESSION: No acute findings right knee. No joint effusion. Electronically signed by: Kings Aldana MD 09/23/2024 10:19 AM EST RP Dictated By: Kings Aldana MD Signed By: <Electronically signed by Kings Aldana MD in OV> 09/23/24 1019 DD/ 1013 TD/TT: 09/23/24 1016 Snag Grinder: Result [facility] External Provider IMG XR PROCEDURES Final Result * Influenza B (ID NOW Rapid Molecular) (09/05/2024 4:22 PM EST) [facility] Influenza B Negative Negative, Indeterminate [facility] Swab 09/05/2024 4:22 PM EST Result [facility] HEARING AID ASSISTANT POINT OF CARE TEST ENTER/EDIT ORDERABLES Final Result Performing Organization Address [facility] Phone Number [facility] [address] [place] [phone] * Influenza A (ID NOW Rapid Molecular) (09/05/2024 4:22 PM EST) [facility] Influenza A Negative Negative, Indeterminate [facility] Swab 09/05/2024 4:22 PM EST Result [facility] HEARING AID ASSISTANT POINT OF CARE TEST ENTER/EDIT ORDERABLES Final Result Performing Organization Address [facility] de Phone Number [facility] [address] [place] [phone] * POCT rapid strep A manually resulted (09/05/2024 4:22 PM EST) [facility] Rapid Strep A Screen Negative Negative, None Detected [facility] Swab 09/05/2024 4:22 PM EST [facility] HEARING AID ASSISTANT POINT OF CARE TEST ENTER/EDIT ORDERABLES Final Result Performing Organization Address [facility]/ZIP Co de Phone Number [facility] [address] [place] [phone] * POCT Rapid COVID Ag (09/05/2024 4:22 PM EST) Rapid COVID Ag Negative [facility] Swab 09/05/2024 4:22 PM EST [facility] HEARING AID ASSISTANT POINT OF CARE TEST ENTER/EDIT ORDERABLES Final Result Performing Organization Address [facility]/ZIP Co de Phone Number [facility] [address] [place] [address] [phone] * Vitamin B12/Folate, Serum Panel (07/11/2024 11:13 AM EST) [facility] Vitamin B12 386 200 - 900 pg/mL [facility] Comment:NORMAL 200-900 PG/ML INDETERMINATE 160-199 PG/ML DEFICIENT < 160 PG/ML Folate 9.8 > or = 4.0 ng/mL [facility] Comment:Reference Values:> o r = 4.0 ng/mL< 4.0 ng/mL suggests folate deficiency Methotrexate, aminopterin and folinic acid(leucovorin) are chemotherapeutic agents whose molecularstructures are similar to folate; therefore, the Architectfolate assay cannot be used for patients using these drugs. Blood Venous blood specimen / Unknown 07/11/2024 11:13 AM EST 07/11/2024 11:13 AM EST Rupinder Snider MD LAB BLOOD ORDERABLES Final Result Performing Organization Address [facility]/ZIP Co de Phone Number [facility] [address] [place] [address] [phone] * TSH W/Reflex to FT4 (07/11/2024 11:13 AM EST) [facility] TSH reflex Free T4 0.84 0.32 - 4.0 uIU/mL [facility] Blood Venous blood specimen / Unknown 07/11/2024 11:13 AM EST 07/11/2024 11:13 AM EST us Rupinder Sniedr MD LAB BLOOD ORDERABLES Final Result Performing Organization Address City/[facility]/ZIP Co de Phone Number [facility] [address] [place] [phone] [phone] * Methylmalonic Acid (07/11/2024 11:13 AM EST) Methylmalonic Acid 148 69 - 390 nmol/L [facility] Comment: Serum methylmalonic acid (MMA) levels are used todiagnose and monitor several rare inborn errors ofmetabolism, including methylmalonic aciduria. Theenzymatic conversion of MMA to succinic acid requiresvitamin B12 (adenosyl-cobalamin) as a cofactor. SerumMMA levels are also used for assessing functionalvitamin B12 deficiency. Vitamin B12 is essential forfetal neurodevelopment, particularly early inpregnancy. Undiagnosed maternal vitamin B12 deficiencymay be associated with adverse / outcomes,such as neural tube defects and intrauterine growthrestriction.[employer] utilized Multi-Modal Decomposition(MMD) analysis to establish first and second trimester-specific MMA reference intervals in , as givenbelow:MMA, First trimester (<13 wks gestation): 58-167 nmol/LMMA, Second trimester (13-23 wks gestation):63-241 nmol/LThis test was developed and its analytical performancecharacteristics have been determined by [employer]. It has not been cleared or approved by theFDA. This assay has been validated pursuant to the CLIAregulations and is used for clinical purposes.THIS TEST WAS PERFORMED AT:[employer]/[id number] [place], [place] ??[phone] MONTEIRO MD,PHD Blood Venous blood specimen / Unknown 07/11/2024 11:13 AM EST 07/11/2024 11:13 AM EST us Rupinder Snider MD LAB BLOOD ORDERABLES Final Result [facility] [address] [place] [phone] [phone] * (ABNORMAL) Homocysteine (07/11/2024 11:13 AM EST) Homocysteine 13.0(A) <11.4 umol/L [facility] Comment:Homocysteine is incr eased by functional deficiency offolate or vitamin B12. Testing for methylmalonic aciddifferentiates between these deficiencies. Other causesof increased homocysteine include renal failure, folateantagonists such as methotrexate and phenytoin, andexposure to nitrous oxide.Dinah Lyle, et al., Vidhya String Laster Med. 1999;131(5):331-9.THIS TEST WAS PERFORMED AT:[facility] [place] [phone] ANGEL MD Blood Venous blood specimen / Unknown 07/11/2024 11:13 AM EST 07/11/2024 11:13 AM EST Rupinder Snider MD LAB BLOOD ORDERABLES Final Result [facility] [address] [place] [phone] * Cologuard?? colon cancer screening (02/17/2024 11:08 AM EDT) Cologuard Result Negative Negative 02/27/20 24 1:22 AM EDT [facility] (CLIA #:[id number]) Comment: NEGATIVE TEST RESULT. A negative Cologuard result indicates a low likelihood that a colorectal cancer (CRC) or advanced adenoma (adenomatous polyps with more advanced pre-malignant features) ??is present. The chance that a person with a negative Cologuard test has a colorectal cancer is less than 1 in 1500 (negative predictive value >99.9%) or has an ??advanced adenoma is less than ??5.3% (negative predictive value 94.7%). These data are based on a prospective cross-sectional study of 10,000 individuals at average risk for colorectal cancer who were screened with both Cologuard and colonoscopy. (Umm Rollins al, N Engl J Med 2014;370(14):1286- 1297) The normal value (reference range) for this assay is negative. COLOGUARD RE-SCREENING RECOMMENDATION: Periodic colorectal cancer screening is an important part of preventive healthcare for asymptomatic individuals at average risk for colorectal cancer. ??Following a negative Cologuard result, the [place] [employer] Society and U.S. Multi-Society Task Force screening guidelines recommend a Cologuard re-screening interval of 3 years. References: [place] [employer] Guideline for Colorectal Cancer Screening: https://www.cancer.org/cancer/fqpjk-pusnji-dmewpt/yxtcjabdj-vmulswlyi-wxgjptw/ac s-rec ommendations.html.; Gt FISCHER, Aidee SILVER, Sarkis LyleK, Colorectal Cancer Screening: Recommendations for Physicians and Patients from the U.S. Multi-Society Task Force on Colorectal Cancer Screening , Am J Gastroenterology 2017; 112:5040-9377. TEST DESCRIPTION: Composite algorithmic analysis of stool DNA-biomarkers with hemoglobin immunoassay. ?? Quantitative values of individual biomarkers are not reportable and are not associated with individual biomarker result reference ranges. Cologuard is intended for colorectal cancer screening of adults of either sex, 45 years or older, who are at average-risk for colorectal cancer (CRC). Cologuard has been approved for use by the U.S. FDA. The performance of Cologuard was established in a cross sectional study of average-risk adults aged 50-84. Cologuard performance in patients ages 45 to 49 years was estimated by sub-group analysis of near-age groups. Colonoscopies performed for a positive result may find as the most clinically significant lesion: colorectal cancer [4.0%], advanced adenoma (including sessile serrated polyps greater than or equal to 1cm diameter) [20%] or non- advanced adenoma [31%]; or no colorectal neoplasia [45%]. These estimates are derived from a prospective cross-sectional screening study of 10,000 individuals at average risk for colorectal cancer who were screened with both Cologuard and colonoscopy. (Umm Arnold, N Engl J Med 2014;370(14):9868-2665.) Cologuard may produce a false negative or false positive result (no colorectal cancer or precancerous polyp present at colonoscopy follow up). A negative Cologuard test result does not guarantee the absence of CRC or advanced adenoma (pre-cancer). The current Cologuard screening interval is every 3 years. ([place] [employer] and U.S. Multi-Society Task Force). Cologuard performance data in a 10,000 patient pivotal study using colonoscopy as the reference method can be accessed at the following location: www.[employer]/results. Additional description of the Cologuard test process, warnings and precautions can be found at www.[employer] Corporation[employer].com. Stool specimen (specimen) Rectal contents / Unknown 02/17/2024 11:08 AM EDT 02/19/2024 2:34 PM EDT Rupinder Snider MD LAB MOLECULAR DIAGNOS TICS ORDERABLES Final Result [facility] (CLIA #:[id number]) [place] [address] [place] [address], * (ABNORMAL) Lipid Panel, Standard (12/24/2023 9:47 AM EDT) Triglycerides 127 <150 mg/dL [facility] Comment:Desirable Triglyceri de: less than 150 mg/dLBorderline High Triglyceride 150-199 mg/dLHigh Triglyceride: 200-499 mg/dLVery High Triglyceride: greater than or equal to 5OO mg/dL Cholesterol 239(H) <200 mg/dL [facility] Comment:Desirable Cholestero l: less than 200 mg/dLBorderline High Cholesterol: 200-239 mg/dLHigh Cholesterol: greater than 239 mg/dL LDL Cholesterol Calculated 169(H) <100 mg/dL [facility] Comment:Desirable LDL: less than 100 mg/dLNear Optimal/Above Optimal LDL: 110- 129 mg/dLBorderline High LDL: 130-159 mg/dLHigh LDL: 160-189 mg/dLVery High LDL: greater than or equal to 190 mg/dL HDL Cholesterol 45 >40 mg/dL [facility] Comment:Desirable HDL: great er than 40 mg/dL Note: This HDL assay may give artificially low results in patients with liver disease. Blood Venous blood specimen / Unknown 12/24/2023 9:47 AM EDT 12/24/2023 11:39 AM EDT us Rupinder Snider MD LAB BLOOD ORDERABLES Final Result Performing Organization Address City/[facility]/ZIP Co de Phone Number [facility] [address] [place] [phone] * HIV 1/2 ANTIGEN/ANTIBODY,FOURTH GENERATION W/RFL (03/08/2022 2:33 PM EDT) [facility] HIV-1/2 ANTIGEN AND ANTIBODIES, 4TH GENERATION W/ REFLEX NON-REACT RUBI NON-REACT RUBI [facility] Comment: HIV-1 antigen and HIV-1/HIV-2 antibodies were not detected. There is no laboratory evidence of HIV infection. ?? PLEASE NOTE: This information has been disclosed to you from records whose confidentiality may be protected by state law. ??If your state requires such protection, then the state law prohibits you from making any further disclosure of the information without the specific written consent of the person to whom it pertains, or as otherwise permitted by law. A general authorization for the release of medical or other information is NOT sufficient for this purpose. ? For additional information please refer to http://education.[employer]/faq/RXA537 (This link is being provided for informational/ educational purposes only.) ? The performance of this assay has not been clinically validated in patients less than 2 years old. ?? 03/08/2022 2:33 PM EDT us Rupinder Snider MD LAB BLOOD ORDERABLES Final Result [facility] [address] [place] [address], from Last 3 Months or Most Recently Relevant to Health Maintenance Insurance [facility] C3 Care Teams Rotary Cutter Feeder Relationship Specialty Start Date End Date Rupinder Cronin MD [address] [place] [phone] PCP - General Family Medicine 07/22/18
--- OUTSIDE RECORDS SUMMARY | 2024-09-25 12:28 | XMS_ITS | Encounter Summary ---
Author Organization [employer] Address [address] [facility] 7[address] [place] [address] Care Team Providers Care Ethylene Compressor Operator Name Role Phone Rupinder Cronin MD Primary Care Provide r Encounter Details Date Type Department Care Team (Late st Contact Info) Description 09/23/2024 Orders Only [facility] External Provider, [facility] Social History Tobacco Use Types Packs/Day Years [...] is your housing situation today? I have mraibel bonilla 11/23/[address] you [...] on file documented as of this encounter Procedures Procedure Name Priority Date/Time Associated Diagnosis Comments XR KNEE 4+ VIEWS RIGHT Routine 09/23/2024 10:13 AM EST documented in this encounter Results * XR Knee 4+ Views Right (09/23/2024 10:13 AM EST) Anatomical Region Laterality Modality Lower Extremities, Knee Right [facility] 09/23/2024 10:1 3 AM EST Narrative 09/23/2024 10:23 AM EST ? [facility] ?[address] ?[place] [address] ?XRay Report ? Signed ? Patient: Jeannette,Memo L ?MR#: [id number] ?? 5 ? : 1960 ?Acct:[id number] ? Age/Sex: 64 / M ?ADM Date: 09/23/24 ? Loc: HO.ED ? Attending Dr: ? Ordering Physician: Generic ED Physician ?? Date of Service: 09/23/24 ?? Procedure(s): XR knee RT 4V ?? Accession Number(s): [id number] ? cc: Rupinder Cronin MD; Generic ED [...] DD/ 1013 ? TD/TT: 09/23/24 1016 ? Tour Bus Driver: ? Procedure Note Naya, Image - 09/23/2024 [facility] [address] [place] [address] XRay Report Signed Patient: Memo Machado LMR#: [id number] 5 : 1960cct:[id number] Age/Sex: 64 / MADM Date: 09/23/24 Loc: HO.ED Attending Dr: Ordering Physician: Generic ED Physician Date of Service: 09/23/24 Procedure(s): XR knee RT 4V Accession Number(s): [id number] cc: Rupinder Cronin MD; Generic ED Physician EXAMINATION: XR KNEE, RIGHT CLINICAL INFORMATION: injury COMPARISON: 09/16/2024. TECHNIQUE: Four views of the right knee. FINDINGS: No fracture or joint effusion. Alignment is anatomic. Joint spaces are maintained. No abnormal soft tissue calcification. XR/XR knee RT 4V IMPRESSION: No acute findings right knee. No joint effusion. Electronically signed by: Kings Aldana MD 09/23/2024 10:19 AM [facility] Dictated By: Kings Aldana MD Signed By: <Electronically signed by Kings Aldana MD in OV> 09/23/24 1019 DD/ 1013 TD/TT: 09/23/24 1016 Tour Bus Driver: [facility] External Provider IMG XR PROCEDURES Final Result documented in this encounter Visit Diagnoses Not on filedocumented in this encounter Additional Health Concerns Assessment Noted Time PHQ-9 Depression Total Score: 0 11/23/19 24 10:27 AM EDT documented as of this encounter Care Teams Ethylene Compressor Operator Relationship Specialty Start Date End Date Rupinder Cronin MD [address] [place] [address] PCP - General Family Medicine 07/22/18 documented as of this encounter
--- OUTSIDE RECORDS SUMMARY | 2024-09-25 12:28 | XMS_ITS | Encounter Summary ---
Author Organization [facility] Address [address] [facility] 7t [place] [address] Care Team Providers Care School Photographs Detailer Name Role Phone Rupinder Cronin MD Primary Care Provide r Reason for Referral * Consultation (STAT) - Authorized Specialty Diagnoses / Procedures Referred By Gumaro kebede Referred To Contact Orthopaedic Surgery Diagnoses Acute pain of right knee Injury of right knee, initial encounter Rupinder Cronin MD [address] [place] [address] Phone: tel: fax: [facility] [address] [place] [address] Phone: tel: Referral ID Status Reason Start Date Expiration Date Visits Requested Visits Authorized [id number] Authorized Specialty Services Required 09/16/2024 09/16/2025 6 6 Encounter Details Date Type Department Care Team (Late st Contact Info) Description 09/16/2024 1:00 PM EST Office Visit [facility] [address] [place] [phone] Rupinder Cronin MD [address] [place] [address] [phone] Acute pain of right knee (Primary Dx); Injury of right knee, initial encounter Social History Tobacco Use Types Packs/Day Years [...] AM EDT documented as of this encounter Last Filed Vital Signs Vital Sign Reading [...] Mass Index 26.63 09/16/2024 12:55 PM EST documented in this encounter Progress Notes * Rupinder Snider MD - 09/16/2024 1:00 PM EST SUBJECTIVE: Memo Machado is a 64 y.o. year old adult who presents for knee pain . Acute Concerns: Patient reports 2 days ago he was cleaning the snow outside and cam in with shoes wet, he went to the basement and slept and fell, he felt his right knee turned and heard a pop, since then he has acute pain 10/10 located on his lateral inner area with swelling and warm sensation, reports it has being very difficult to ambulate Social History Social History Narrative Not on file Patient Active Problem List Diagnosis Chronic hepatitis C (CMS/HCC) Chronic obstructive lung disease (CMS/HCC) Hepatic fibrosis Hyperlipidemia Intra-abdominal lymphadenopathy Insomnia Mixed anxiety and depressive disorder Smoker Thyrotoxicosis Screening for lung cancer Colon cancer screening COPD with acute exacerbation (CMS/HCC) Bilateral leg pain Chronic bursitis of right shoulder Chronic right shoulder pain Chronic neck pain Acute pain of right knee Right knee injury No family history on file. Review of Systems Constitutional: Negative. HENT: Negative. Respiratory: Negative. Cardiovascular: Negative. Musculoskeletal: Positive for arthralgias, gait problem and joint swelling. Negative for back pain,myalgias and neck pain. OBJECTIVE: Vitals: 09/16/24 1255 BP: 118/80 BP Location: Left arm Patient Position: Sitting BP Cuff Size: Adult Pulse: 52 Resp: 18 Temp: 97.6 ??F (36.4 ??C) TempSrc: Temporal SpO2: 98% Weight: 170 lb (77.1 kg) Height: 5' 7 (1.702 m) Physical Exam Constitutional: Appearance: Normal appearance. Cardiovascular: Rate and Rhythm: Normal rate and regular rhythm. Pulmonary: Effort: Pulmonary effort is normal. Breath sounds: Normal breath sounds. Abdominal: General: Abdomen is flat. Palpations: Abdomen is soft. Musculoskeletal: Right knee: Decreased range of motion. Tenderness present over the LCL and ACL. Neurological: Mental Status: Memo is alert. Follow Up: No follow-ups on file. Current Outpatient Medications on File Prior to Visit Medication Sig Dispense Refill albuterol 108 (90 Base) MCG/ACT inhaler Inhale 2 puffs every 4 (four) hours if needed for wheezing.18 g 2 atorvastatin (Lipitor) 40 MG tablet Take 1 tablet by mouth once daily 90 tablet 1 azithromycin (Zithromax) 250 MG tablet Take 2 tabs PO daily x 1d then 1 tab PO daily on D2 to D5 6 tablet 0 buPROPion SR (Wellbutrin SR) 150 MG 12 hr tablet Take 1 tablet (150 mg) by mouth 2 times daily. Do not crush, chew, or split. 180 tablet 1 cyanocobalamin (Vitamin B-12) 1000 MCG tablet TAKE 1 TABLET BY MOUTH ONCE DAILY 90 tablet 0 hydrOXYzine HCl (Atarax) 25 MG tablet Take 1 tablet by mouth once daily as needed 30 tablet 3 mirtazapine (Remeron) 15 MG tablet Take 1 tablet (15 mg) by mouth at bedtime. 90 tablet 0 Mometasone Furoate (Asmanex HFA) 100 MCG/ACT aerosol Inhale 1 puff in the morning and at bedtime. Rinse mouth with water after use to reduce aftertaste and incidence of candidiasis. Do not swallow., 13 g 3 montelukast (Singulair) 10 MG tablet Take 1 tablet by mouth once daily 90 tablet 2 [] predniSONE (Deltasone) 20 MG tablet Take 2 tablets (40 mg) by mouth Once per day for 5 days. 10 tablet 0 Spacer/Aero-Holding Chambers (OptiChamber Shahnaz) misc 1 each every 4 (four) hours if needed (asthma). 1 each 0 tiotropium (Spiriva Respimat) 2.5 MCG/ACT inhaler Inhale 2 puffs once daily 1 each 2 varenicline (Chantix) 1 MG tablet Take 1 tablet (1 mg) by mouth 2 times daily. Take with full glassof water. 60 tablet 1 Varenicline Tartrate, Starter, (Chantix Starting Month ) 0.5 MG X 11 & 1 MG X 42 tablet therapy pack Take 1 tablet by mouth in the morning. 53 each 0 No current facility-administered medications on file prior to visit. Problem List Items Addressed This Visit Acute pain of right knee - Primary Relevant Medications ibuprofen 800 MG tablet lidocaine (Lidoderm) 5 % patch Other Relevant Orders XR Knee 4+ Views Right (Completed) Referral to Orthopaedic Surgery Right knee injury Elevate knee apply ice and rest Crutches will be prescribe Ibuprofen 800mg Q 8hrs Lidocaine patch XRAY and STAT referral to orthopedics Relevant Medications ibuprofen 800 MG tablet lidocaine (Lidoderm) 5 % patch Other Relevant Orders XR Knee 4+ Views Right (Completed) Referral to Orthopaedic Surgery documented in this encounter Miscellaneous Notes * Assessment & Plan Note - Rupinder Snider MD - 09/16/2024 2:08 PM EST Associated Problem(s): Right knee injury Elevate knee apply ice and rest Crutches will be prescribe Ibuprofen 800mg Q 8hrs Lidocaine patch XRAY and STAT referral to orthopedics documented in this encounter Plan of Treatment Scheduled Referrals Name Type Priority Associated Diagnoses Order Schedule Referral to Orthopaedic Surgery Outpatient Referral STAT Acute pain of right knee Injury of right knee, initial encounter Expected: 09/16/2024 (Approximate), Expires: 09/16/2025 documented as of this encounter Procedures Procedure Name Priority Date/Time Associated Diagnosis Comments XR KNEE 4+ VIEWS RIGHT Routine 09/16/2024 1:45 PM EST Acute pain of right knee Injury of right knee, initial encounter documented in this encounter Results * XR Knee 4+ Views Right (09/16/2024 1:45 PM EST) Anatomical Region Laterality Modality Lower Extremities, Knee Right Radiogra phic Imaging 09/16/2024 1:45 PM EST Narrative 09/16/2024 2:04 PM EST ?[facility] ?[address] ?[place] [address] ?XRay Report ? Signed ? Patient: Machado,Memo L ?MR#: [id number] ?? 5 ? : 1960 ?Acct:[id number] ? Age/Sex: 64 / M ?ADM Date: 01/21/25 ? Loc: HO.HHCX ? Attending Dr: Rupinder Snider MD ? Ordering Physician: Rupinder Cronin MD ?? Date of Service: 09/16/24 ?? Procedure(s): XR knee RT 4V ?? Accession Number(s): [id number] ? cc: Rupinder Cronin MD ? EXAMINATION: ??XR KNEE 4 OR MORE VIEWS RIGHT ? HISTORY: pain after fall ? COMPARISON: There are no prior studies available for comparison. ? FINDINGS: ? Four views of the right knee are submitted. ??Osseous mineralization is ?? normal. ??There is no fracture or dislocation. ??The joint spaces are ?? preserved. ??The soft tissues are unremarkable. There is no joint ?? effusion. ? XR/XR knee RT 4V ?? IMPRESSION: ? Unremarkable examination of the right knee. ? Electronically signed by: ??Dominick Herrera MD ??09/16/2024 02:01 PM EST ?? RP ? Dictated By: ?Dominick Herrera MD ? Signed By: ?<Electronically signed by Dominick Herrera MD in OV> ?09/16/24 1401 ? DD/ 1345 ? TD/TT: 09/16/24 1354 ? Regional Education Coordinator: ? Procedure Note Moriahjessica, Image - 09/16/[address] [address] XRay Report Signed Patient: Memo Machado LMR#: [id number] 5 : 1960cct:[id number] Age/Sex: 64 / MADM Date: 09/16/24 Loc: HO.HHCX Attending Dr: Rupinder Snider MD Ordering Physician: Rupinder Cronin MD Date of Service: 09/16/24 Procedure(s): XR knee RT 4V Accession Number(s): [id number] cc: Rupinder Cronin MD EXAMINATION: XR KNEE 4 OR MORE VIEWS RIGHT HISTORY: pain after fall COMPARISON: There are no prior studies available for comparison. FINDINGS: Four views of the right knee are submitted. Osseous mineralization is normal. There is no fracture or dislocation. The joint spaces are preserved. The soft tissues are unremarkable. There is no joint effusion. XR/XR knee RT 4V IMPRESSION: Unremarkable examination of the right knee. Electronically signed by: Dominick Herrera MD 09/16/2024 02:01 PM EST Dictated By: Dominick Herrera MD Signed By: <Electronically signed by Dominick Herrera MD in OV> 09/16/24 1401 DD/ 1345 TD/TT: 09/16/24 1354 Regional Education Coordinator: us Rupinder Sndier MD IMG XR PROCEDURES Fin al Result documented in this encounter Visit Diagnoses Diagnosis Acute pain of right knee- Primary Injury of right knee, initial encounter documented in this encounter Additional Health Concerns Assessment Noted Time PHQ-9 Depression Total Score: 0 11/23/19 24 10:27 AM EDT documented as of this encounter Care Teams School Photographs Detailer Relationship Specialty Start Date End Date Rupinder Cronin MD [address] [place] [address] PCP - General Family Medicine 07/22/18 documented as of this encounter
--- OUTSIDE RECORDS SUMMARY | 2024-09-25 12:28 | XMS_ITS | Encounter Summary ---
Author Organization [employer] Address [address] [facility] [address] [place] [address] Care Team Providers Care Patient Svcs Mgr Name Role Phone Rupinder Cronin MD Primary Care Provide r Reason for Referral * PFT (Routine) - Authorized Specialty Diagnoses / Procedures Referred By Gumaro kebede Referred To Contact Diagnoses Chronic obstructive pulmonary disease with acute exacerbation (CMS/HCC) Procedures Pulmonary function test Delores Sow FNP [address] [place] [address] Phone: tel: fax: [address] Phone: tel: fax: Referral ID Status Reason Start Date Expiration Date V isits Requested Visits Authorized [id number] Authorized 09/05/2024 09/05/2025 1 1 Reason for Visit * Reason Comments Sore Throat Encounter Details Date Type Department Care Team (Late st Contact Info) Description 09/05/2024 2:00 PM EST Office Visit [facility] [address] [place] [phone] Delores Sow FNP [address] [place], [place] [phone] Chronic obstructive pulmonary disease with acute exacerbation (CMS/HCC) (Primary Dx); Chronic obstructive pulmonary disease, unspecified COPD type (CMS/HCC) Social History Tobacco Use Types Packs/Day Years [...] Sign Reading Time Taken Comments Blood Pressure 119/70 09/05/2024 1:16 PM EST Pulse 81 09/05/2024 1:16 PM EST Temperature 36.4 ??C (97.5 ??F) 09/05/2024 1:16 PM ES T Respiratory Rate 18 09/05/2024 1:16 PM EST Oxygen Saturation 95% 09/05/2024 1:16 PM EST Inhaled Oxygen Concentration - - Weight 77 kg (169 lb 12.8 oz) 09/05/2024 1:16 PM EST Height 171.5 cm (5' 7.5 ) 09/05/2024 1:16 PM EST Body Mass Index 26.2 09/05/2024 1:16 PM EST documented in this encounter Progress Notes * Delores [place], VP SOFTWARE SUPPORT - 09/05/2024 2:00 PM EST SUBJECTIVE: Memo Machado is a 64 y.o. adult with ?COPD who presents for evaluation re URI sx HPI Sx x 1 week-ST, cough, SOB since return from [place]. Increased phlegm, fatigue, chills Hx of ?COPD -- no longer using any inhalers. Ran out x 1 month. Reports he was taking asmanex and spiriva with improvement in sx Quit smoking with chantix x 2 months Patient Active Problem List Diagnosis Chronic hepatitis C (CMS/HCC) Chronic obstructive lung disease (CMS/HCC) Hepatic fibrosis Hyperlipidemia Intra-abdominal lymphadenopathy Insomnia Mixed anxiety and depressive disorder Smoker Thyrotoxicosis Screening for lung cancer Colon cancer screening COPD with acute exacerbation (CMS/HCC) Bilateral leg pain Chronic bursitis of right shoulder Chronic right shoulder pain Chronic neck pain Review of Systems Constitutional: Positive for chills and fatigue. Negative for fever. HENT: Positive for congestion, rhinorrhea, sinus pressure and sore throat. Negative for ear discharge and ear pain. Eyes: Negative for pain and visual disturbance. Respiratory: Positive for cough, shortness of breath and wheezing. Negative for chest tightness. Cardiovascular: Negative for chest pain. Gastrointestinal: Negative for abdominal pain, blood in stool, constipation, diarrhea, nausea and vomiting. Genitourinary: Negative for decreased urine volume. Musculoskeletal: Negative for joint swelling. Neurological: Negative for dizziness and headaches. OBJECTIVE: Visit Vitals BP 119/70 (BP Location: Left arm, Patient Position: Sitting, BP Cuff Size: Adult) Pulse 81 Temp 97.5 ??F (36.4 ??C) (Oral) Resp 18 Ht 5' 7.5 (1.715 m) Wt 169 lb 12.8 oz (77 kg) SpO2 95% BMI 26.20 kg/m?? Smoking Status Every Day BSA 1.92 m?? Physical Exam Constitutional: General: Memo is not in acute distress. Appearance: Normal appearance. HENT: Right Ear: Tympanic membrane, ear canal and external ear normal. Left Ear: Tympanic membrane, ear canal and external ear normal. Nose: Congestion and rhinorrhea present. Mouth/Throat: Pharynx: No oropharyngeal exudate or posterior oropharyngeal erythema. Eyes: Conjunctiva/sclera: Conjunctivae normal. Pupils: Pupils are equal, round, and reactive to light. Neck: Vascular: Carotid bruit present. Cardiovascular: Rate and Rhythm: Normal rate and regular rhythm. Heart sounds: Normal heart sounds. Pulmonary: Effort: Pulmonary effort is normal. Breath sounds: Wheezing present. Comments: Decreased breath sounds throughout lung lopez Abdominal: Palpations: Abdomen is soft. Tenderness: There is no abdominal tenderness. Lymphadenopathy: Cervical: Cervical adenopathy present. Skin: General: Skin is warm and dry. Neurological: Mental Status: Memo is alert and oriented to person, place, and time. Psychiatric: Mood and Affect: Mood normal. Behavior: Behavior normal. ASSESSMENT/PLAN: Rapid flu/covid negative COPD exacerbation in setting of non-compliance with inhalers Prednisone burst x 5 days Z-sean-->concern for bronchitis RESTART spiriva and asmanex Albuterol PRN No PFT's on record--will order and pending results consider pulm referral ED precautions advised Patient verbalizes understanding and agrees to plan - Home supportive measures advised including: increased fluids, honey, tylenol/ibuprofen per instructions for pain/fever, nasal saline spray, cool mist humidifier. Current Outpatient Medications: albuterol 108 (90 Base) MCG/ACT inhaler, Inhale 2 puffs every 6 (six) hours if needed for wheezing or shortness of breath., Disp: 18 g, Rfl: 1 albuterol 108 (90 Base) MCG/ACT inhaler, Inhale 2 puffs every 4 (four) hours if needed for wheezing., Disp: 18 g, Rfl: 2 atorvastatin (Lipitor) 40 MG tablet, Take 1 tablet by mouth once daily, Disp: 90 tablet, Rfl: 1 azithromycin (Zithromax) 250 MG tablet, Take 2 tabs PO daily x 1d then 1 tab PO daily on D2 to D5, Disp: 6 tablet, Rfl: 0 buPROPion SR (Wellbutrin SR) 150 MG 12 hr tablet, Take 1 tablet (150 mg) by mouth 2 times daily. Donot crush, chew, or split., Disp: 180 tablet, Rfl: 1 cyanocobalamin (Vitamin B-12) 1000 MCG tablet, Take 1 tablet (1,000 mcg) by mouth Once per day., Disp: 30 tablet, Rfl: 1 fluticasone (Flovent) 110 MCG/ACT inhaler, Inhale 1 puff in the morning and at bedtime. Rinse mouthwith water after use to reduce aftertaste and incidence of candidiasis. Do not swallow., Disp: 12 g, Rfl: 11 hydrOXYzine HCl (Atarax) 25 MG tablet, Take 1 tablet by mouth once daily as needed, Disp: 30 tablet, Rfl: 3 mirtazapine (Remeron) 15 MG tablet, Take 1 tablet (15 mg) by mouth at bedtime., Disp: 90 tablet, Rfl: 0 Mometasone Furoate (Asmanex HFA) 100 MCG/ACT aerosol, Inhale 2 puffs 2 times daily. Inhale 1 puff in the morning and at bedtime. Rinse mouth with water after use to reduce aftertaste and incidence ofcandidiasis. Do not swallow.,, Disp: 13 g, Rfl: 11 montelukast (Singulair) 10 MG tablet, Take 1 tablet by mouth once daily, Disp: 90 tablet, Rfl: 2 Spacer/Aero-Holding Chambers (OptiChamber Shahnaz) misc, 1 each every 4 (four) hours if needed (asthma)., Disp: 1 each, Rfl: 0 tiotropium (Spiriva Respimat) 2.5 MCG/ACT inhaler, Inhale 2 puffs once daily, Disp: 1 each, Rfl: 2 varenicline (Chantix) 1 MG tablet, Take 1 tablet (1 mg) by mouth 2 times daily. Take with full glass of water., Disp: 60 tablet, Rfl: 1 Varenicline Tartrate, Starter, (Chantix Starting Month ) 0.5 MG X 11 & 1 MG X 42 tablet therapy pack, Take 1 tablet by mouth in the morning., Disp: 53 each, Rfl: 0 Kiswahili Translation: Provided by [facility] staff member PRASANNA Upton documented in this encounter Plan of Treatment Scheduled Orders Name Type Priority Associated Diagnoses Orde r Schedule Pulmonary function test PFT Routine Chronic obstructive pulmonary disease with acute exacerbation ([facility]) Expected: 09/05/2024 (Approximate), Expires: 09/05/2025 documented as of this encounter Procedures Procedure Name Priority Date/Time Associated Diagnosis Comments POCT INFLUENZA B (ID NOW RAPID MOLECULAR) [...] obstructive pulmonary disease with acute exacerbation (CMS/HCC) documented in this encounter Results * Influenza B (ID NOW Rapid Molecular) (09/05/2024 4:22 PM EST) Influenza B Negative Negative, Indeterminate [facility] Swab 09/05/2024 4:22 PM EST [facility] POINT OF CARE TEST ENTER/EDIT ORDERABLES Final Result Performing Organization Address [facility]/ZIP Co de Phone Number [facility] [address] [place] [phone] * Influenza A (ID NOW Rapid Molecular) (09/05/2024 4:22 PM EST) Influenza A Negative Negative, Indeterminate [facility] Swab 09/05/2024 4:22 PM EST [facility] VP SOFTWARE SUPPORT POINT OF CARE TEST ENTER/EDIT ORDERABLES Final Result Performing Organization Address [facility]/ZIP Co de Phone Number [facility] [address] [place] [phone] * POCT rapid strep A manually resulted (09/05/2024 4:22 PM EST) Rapid Strep A Screen Negative Negative, None Detected [facility] Swab 09/05/2024 4:22 PM EST [facility] VP SOFTWARE SUPPORT POINT OF CARE TEST ENTER/EDIT ORDERABLES Final Result Performing Organization Address [facility] de Phone Number [facility] [address] [place] [phone] * POCT Rapid COVID Ag (09/05/2024 4:22 PM EST) Rapid COVID Ag Negative [facility] Swab 09/05/2024 4:22 PM EST Result [facility] VP SOFTWARE SUPPORT POINT OF CARE TEST ENTER/EDIT ORDERABLES Final Result Performing Organization Address [facility] de Phone Number [facility] [address] [place] [phone] documented in this encounter Visit Diagnoses Diagnosis Chronic obstructive pulmonary disease with acute exacerbation (CMS/HCC)- Primary Chronic obstructive pulmonary disease, unspecified COPD type (CMS/HCC) documented in this encounter Additional Health Concerns Assessment Noted Time PHQ-9 Depression Total Score: 0 11/23/19 24 10:27 AM EDT documented as of this encounter Care Teams Patient Svcs Mgr Relationship Specialty Start Date End Date Rupinder Cronin MD [address] [place] [phone] PCP - General Family Medicine 07/22/18 documented as of this encounter
== END 2024-09-25 09:18 | disposition home or self-care (01) ==
LOC: HO.RESP 09:17
PROVIDERS: PCP Internal Medicine; Visit Provider Registered Nurse
DX: J44.1 Chronic obstructive pulmonary disease with (acute) exacerbation (principal)
CPT/HCPCS: 94010; 94640; 94727; 94729

== ENCOUNTER → 2024-09-25 09:30 | Outpatient (BNV) | payer MEDICAID, SELFPAY | PROVIDERS: PCP Internal Medicine; Visit Provider Internal Medicine Pulmonary Disease | DX: J44.9 Chronic obstructive pulmonary disease, unspecified (principal) | CPT/HCPCS: 94060; 94727; 94729 ==

== ENCOUNTER 2024-10-24 10:21 | Outpatient (REF) | payer MEDICAID, SELFPAY ==
--- OUTSIDE RECORDS SUMMARY | 2024-10-24 11:38 | XMS_ITS | Encounter Summary ---
Author Organization [employer] Address [address] [facility] [address] [place] [address] Care Team Providers Care Pond Supervisor Name Role Phone Rupinder Cronin MD Primary Care Provide r Reason for Visit * Reason Onset Date Comments Results 10/03/2024 Encounter Details Date Type Department Care Team (Late st Contact Info) Description 10/03/2024 Telephone [facility] [address] [place] [address] Nusrat Lam RN Results Social History Tobacco Use Types Packs/Day Years [...] AM EDT documented as of this encounter Miscellaneous Notes * Telephone Encounter - Nusrat Lam RN - 10/03/2024 5:00 PM EST PFT ordered by [facility] MAT[employer]LING [employer]SE SUPERVISOR on 09/25/24 Will forward to pt's PCP Dr. Key next OV is 11/24/24 at 130pm with PCP Impression: No obstructive or restrictive ventilatory defect. No bronchodilator response. Decreased diffusion capacity suggests emphysema. Dictated By: Evonne Moeller 09/26/24 1434 Nusrat Lam RN 10/03/2024 05:00 PM EST documented in this encounter Plan of Treatment Upcoming Encounters Date Type Department Care Team (Late st Contact Info) Description 11/24/2024 1:30 PM EDT Office Visit [facility] [address] [place] [phone] Rupinder Cronin MD [address] [place] [address] documented as of this encounter Visit Diagnoses Not on filedocumented in this encounter Additional Health Concerns Assessment Noted Time PHQ-9 Depression Total Score: 0 11/23/19 24 10:27 AM EDT documented as of this encounter Care Teams Pond Supervisor Relationship Specialty Start Date End Date Rupinder Cronin MD [address] [place] [phone] PCP - General Family Medicine 07/22/18 documented as of this encounter
--- OUTSIDE RECORDS SUMMARY | 2024-10-24 11:38 | XMS_ITS | Clinical Summary ---
Author Organization [employer] Address [address] [facility] [address] [place] [address] Care Team Providers Care Disease Case Manager Rn Name Role Phone Rupinder Cronin MD Primary Care Provide r Allergies No known active allergies Medications buPROPion SR (Wellbutrin SR) 150 MG 12 hr tabletIndications: Smoker Take 1 tablet (150 mg) by mouth 2 times daily. Do not crush, chew, or split. 180 tablet 1 12/27/19 23 Active varenicline (Chantix) 1 MG tabletIndications: Smoker Take 1 tablet (1 mg) by mouth 2 times daily. Take with full glass of water. 60 tablet 1 12/27/19 23 Active Varenicline Tartrate, Starter, (Chantix Starting Month ) 0.5 MG X 11 & 1 MG X 42 tablet therapy packIndications:Sm oker Take 1 tablet by mouth in the morning. 53 each 12/27/19 23 Active hydrOXYzine HCl (Atarax) 25 MG tabletIndications: Anxiety with depression Take 1 tablet by mouth once daily as needed 30 tablet 3 12/27/19 23 Active mirtazapine (Remeron) 15 MG tabletIndications: Anxiety with depression Take 1 tablet (15 mg) by mouth at bedtime. 90 tablet 12/27/19 23 Active montelukast (Singulair) 10 MG tabletIndications: Allergy, sequela Take 1 tablet by mouth once daily 90 tablet 2 04/29/20 24 Active Spacer/Aero-Holdin g Chambers (OptiChamber Shahnaz) misc 1 each every 4 (four) hours if needed (asthma). 1 each 04/29/20 24 Active atorvastatin (Lipitor) 40 MG tabletIndications: Hyperlipidemia, unspecified hyperlipidemia type Take 1 tablet by mouth once daily 90 tablet 1 06/16/20 24 Active azithromycin (Zithromax) 250 MG tabletIndications: Chronic obstructive pulmonary disease with acute exacerbation (CMS/HCC) Take 2 tabs PO daily x 1d then 1 tab PO daily on D2 to D5 6 tablet 09/05/19 25 Active Mometasone Furoate (Asmanex HFA) 100 MCG/ACT aerosolIndications :Chronic obstructive pulmonary disease with acute exacerbation (CMS/HCC) Inhale 1 puff in the morning and at bedtime. Rinse mouth with water after use to reduce aftertaste and incidence of candidiasis. Do not swallow., 13 g 3 09/05/19 25 Active tiotropium (Spiriva Respimat) 2.5 MCG/ACT inhalerIndications :Chronic obstructive pulmonary disease with acute exacerbation (CMS/HCC) Inhale 2 puffs once daily 1 each 2 09/05/19 25 Active albuterol 108 (90 Base) MCG/ACT inhalerIndications :Chronic obstructive pulmonary disease with acute exacerbation (CMS/HCC) Inhale 2 puffs every 4 (four) hours if needed for wheezing. 18 g 2 09/05/19 25 026 Active cyanocobalamin (Vitamin B-12) 1000 MCG tabletIndications: Vitamin B12 deficiency TAKE 1 TABLET BY MOUTH ONCE DAILY 90 tablet 09/08/19 25 Active lidocaine (Lidoderm) 5 % patchIndications:A cute pain of right knee,Injury of right knee, initial encounter Apply 1 patch topically Once per day. Remove & discard patch within 12 hours or as directed by MD. 30 patch 09/16/19 25 Active ibuprofen 800 MG tabletIndications: Acute pain of right knee,Injury of right knee, initial encounter Take 1 tablet (800 mg) by mouth every 8 (eight) hours if needed for mild pain for up to 10 days. 40 tablet 09/16/19 25 025 Active Problems Problem Noted Date Diagnosed Date [...] Encounters Date Type Department Care Team Description 10/03/2024 Telephone [facility] [address] [place] [phone] Nusrat Lam, RN Results 09/23/2024 Orders Only [facility] External Provider, [facility] 09/16/2024 1:00 PM EST Office Visit [facility] [address] [phone] Rupinder Cronin MD Acute pain of right knee (Primary Dx); Injury of right knee, initial encounter 09/06/2024 Refill [facility] [address] [place] [phone] Rupinder Cronin MD Vitamin B12 deficiency 09/05/2024 2:00 PM EST Office Visit [facility] [address] [place] [phone] Magi, Delores, CIVIL ENGINEERING DESIGNER Chronic obstructive pulmonary disease with acute exacerbation (CMS/HCC) (Primary Dx); Chronic obstructive pulmonary disease, unspecified COPD type (CMS/HCC) 09/05/2024 Travel from Last 3 Months Immunizations Name Administration [...] EDT Gender Identity Choose not to disclose 2 10:21 AM EDT Sexual Orientation Choose not [...] 09/16/2024 12:55 PM EST Plan of Treatment Upcoming Encounters Date Type Department Care Team (Late st Contact Info) Description 11/24/2024 1:30 PM EDT Office Visit [facility] [address] [place] [address] Rupinder Cronin MD [address] [place] [address] Health Maintenance Due Date Last Done Comments [...] years 1-dose series) 2021 COVID-19 Vaccine ( - season) 2024 11/23/2023, 08/24/2022, 09/02/2021 Influenza Vaccine [...] obstructive pulmonary disease with acute exacerbation (CMS/HCC) LAB COLOGUARD?? COLON CANCER SCREEN Routine 02/17/2024 [...] Lower Extremities, Knee Right Radiogra phic Imaging 09/23/2024 10:1 3 AM EST Narrative 09/23/2024 10:23 AM EST ? [facility] ?[address] ?[place] [address] ?XRay Report ? Signed ? Patient: Memo Machado ?MR#: [id number] ?? 5 ? : 1960 ?Acct:[id number] ? Age/Sex: 64 / M ?ADM Date: 09/23/24 ? Loc: HO.ED ? Attending Dr: ? Ordering Physician: Generic ED Physician ?? Date of Service: 09/23/24 ?? Procedure(s): XR knee RT 4V ?? Accession Number(s): [id number] ? cc: Rupinder Cronin MD; Generic ED [...] DD/ 1013 ? TD/TT: 09/23/24 1016 ? Endbander: ? Procedure Note Donabiodun, Elizabeth - 09/23/[address] [address] XRay Report Signed Patient: Memo Machado LMR#: [id number] 5 : 1960cct:[id number] Age/Sex: 64 / MADM Date: 09/23/24 Loc: HO.ED Attending Dr: Ordering Physician: Generic ED Physician Date of Service: 09/23/24 Procedure(s): XR knee RT 4V Accession Number(s): [id number] cc: Rupinder Cronin MD; Generic ED Physician [...] Kings Aldana MD 09/23/2024 10:19 AM EST Dictated By: Kings Aldana MD Signed By: <Electronically signed by Kings Aldana MD in OV> 09/23/24 1019 DD/ 1013 TD/TT: 09/23/24 1016 Endbander: [facility] External Provider IMG XR PROCEDURES Final Result * Influenza B (ID NOW Rapid Molecular) (09/05/2024 4:22 PM EST) Influenza B Negative Negative, Indeterminate [facility] Swab 09/05/2024 4:22 PM EST [facility] CIVIL ENGINEERING DESIGNER POINT OF CARE TEST ENTER/EDIT ORDERABLES Final Result Performing Organization Address [facility]/ZIP Co de Phone Number [facility] [address] [place] [address] [phone] * Influenza A (ID NOW Rapid Molecular) (09/05/2024 4:22 PM EST) Pathologist [facility] Influenza A Negative Negative, Indeterminate [facility] Swab 09/05/2024 4:22 PM EST [facility] CIVIL ENGINEERING DESIGNER POINT OF CARE TEST ENTER/EDIT ORDERABLES Final Result Performing Organization Address [facility] Co de Phone Number [facility] [address] [place] [phone] * POCT rapid strep A manually resulted (09/05/2024 4:22 PM EST) [facility] Rapid Strep A Screen Negative Negative, None Detected [facility] Swab 09/05/2024 4:22 PM EST [facility] CIVIL ENGINEERING DESIGNER POINT OF CARE TEST ENTER/EDIT ORDERABLES Final Result Performing Organization Address [facility] Co de Phone Number [facility] [address] [place] [phone] * POCT Rapid COVID Ag (09/05/2024 4:22 PM EST) [facility] Rapid COVID Ag Negative [facility] Swab 09/05/2024 4:22 PM EST [facility] CIVIL ENGINEERING DESIGNER POINT OF CARE TEST ENTER/EDIT ORDERABLES Final Result Performing Organization Address [facility]/ZIP Co de Phone Number [facility] [address] [place] [phone] * Cologuard?? colon cancer screening (02/17/2024 11:08 AM EDT) Cologuard Result Negative Negative 02/27/20 1:22 AM EDT [facility] (CLIA #:[id number]) Comment: NEGATIVE TEST RESULT. A negative Cologuard [...] screened with both Cologuard and colonoscopy. (Umm Haas et al, N Engl J Med 2014;370(14):1286- 1297) The normal value (reference range) for this assay is negative. COLOGUARD RE-SCREENING RECOMMENDATION: Periodic colorectal cancer screening is an important part of preventive healthcare for asymptomatic individuals at average risk for colorectal cancer. ??Following a negative Cologuard result, the [place] [employer] Society and U.S. Multi-Society Task Force screening guidelines recommend a Cologuard re-screening interval of 3 years. References: [place] [employer] Guideline for Colorectal Cancer Screening: https://www.cancer.org/cancer/olofn-hajmvf-diwcuo/zzucxmsza-zkqqefpvg-epjtdgr/ac s-rec ommendations.html.; Gt FISCHER, Aidee SILVER, Sarkis LyleK, Colorectal Cancer Screening: Recommendations for Physicians and Patients from the U.S. Multi-Society Task Force on Colorectal Cancer Screening , Am J Gastroenterology 2017; 112:5248-7919. TEST DESCRIPTION: Composite algorithmic analysis of stool [...] screened with both Cologuard and colonoscopy. (Umm Murray. et al, N Engl J Med 2014;370(14):0169-8986.) Cologuard may produce a false negative or false positive result (no colorectal cancer or precancerous polyp present at colonoscopy follow up). A negative Cologuard test result does not guarantee the absence of CRC or advanced adenoma (pre-cancer). The current Cologuard screening interval is every 3 years. ([place] [employer] and U.S. Multi-Society Task Force). Cologuard performance data in a 10,000 patient pivotal study using colonoscopy as the reference method can be accessed at the following location: www.[employer]/results. Additional description of the Cologuard test process, warnings and precautions can be found at www.Cold Futuresrd.com. Stool specimen (specimen) Rectal contents / Unknown 02/17/2024 11:08 AM EDT 02/19/2024 2:34 PM EDT us Rupinder Snider MD LAB MOLECULAR DIAGNOS TICS ORDERABLES Final Result [facility] (CLIA #:[id number]) [address] [place] [place] [place] [address], * (ABNORMAL) Lipid Panel, Standard (12/24/2023 9:47 AM EDT) Triglycerides 127 <150 mg/dL [facility] Comment:Desirable Triglyceri de: less than 150 mg/dLBorderline High Triglyceride 150-199 mg/dLHigh Triglyceride: 200-499 mg/dLVery High Triglyceride: greater than or equal to 5OO mg/dL Cholesterol 239(H) <200 mg/dL [facility] Comment:Desirable Cholestero l: less than 200 mg/dLBorderline High Cholesterol: 200-239 mg/dLHigh Cholesterol: greater than 239 mg/dL LDL Cholesterol Calculated 169(H) <100 mg/dL [facility] Comment:Desirable LDL: less than 100 mg/dLNear Optimal/Above Optimal LDL: 110- 129 mg/dLBorderline High LDL: 130-159 mg/dLHigh LDL: 160-189 mg/dLVery High LDL: greater than or equal to 190 mg/dL HDL Cholesterol 45 >40 mg/dL [facility] Comment:Desirable HDL: great er than 40 mg/dL Note: This HDL assay may give artificially low results in patients with liver disease. Blood Venous blood specimen / Unknown 12/24/2023 9:47 AM EDT 12/24/2023 11:39 AM EDT Rupinder Snider MD LAB BLOOD ORDERABLES Final Result [facility] [address] [place] [phone] * HIV 1/2 ANTIGEN/ANTIBODY,FOURTH GENERATION W/RFL (03/08/2022 2:33 PM EDT) [facility] HIV-1/2 ANTIGEN AND ANTIBODIES, 4TH GENERATION W/ REFLEX NON-REACT RUBI NON-REACT RUBI [facility] Comment: HIV-1 antigen and HIV-1/HIV-2 [...] ? For additional information please refer to http://education.DeciZium.NinthDecimal/faq/XJQ751 (This link is being provided for informational/ educational purposes only.) ? The performance of this assay has not been clinically validated in patients less than 2 years old. ?? 03/08/2022 2:33 PM EDT Rupinder Snider MD LAB BLOOD ORDERABLES Final Result [facility] [address] from Last 3 Months or Most Recently Relevant to Health Maintenance Insurance [employer] * Guarantor: Memo Machado Account Type Relation to Patient Date of Phone Billing Address Personal/Family Self [address] [phone] Care Teams Disease Case Manager Rn Relationship Specialty Start Date End Date Rupinder Cronin MD [address] [place] [phone] PCP - General Family Medicine 07/22/18
== END 2024-10-24 10:22 | disposition home or self-care (01) ==
LOC: HO.HOSX 10:21
PROVIDERS: Visit Provider Physician Assistant
DX: Z13.89 Encounter for screening for other disorder (principal)

== ENCOUNTER 2024-11-12 11:38 | Outpatient (REF) | payer MEDICAID, SELFPAY ==
--- NOTE | ~2024-11-12 | XR_ITS ---
CLINICAL HISTORY: M25.569 - Pain in unspecified knee 2 view right knee Comparison: None Findings: No fractures or dislocations. No significant loss of joint space, osteophytes, or erosions. No joint effusion. No radiopaque foreign body. IMPRESSION: 1. No acute findings. This document has been electronically signed by: Phillip Heaton MD on 11/14/2024 07:51:36
== END 2024-11-12 11:39 | disposition home or self-care (01) ==
LOC: HO.HOSX 11:38
PROVIDERS: Visit Provider Physician Assistant
DX: M25.561 Pain in right knee (principal)
CPT/HCPCS: 20610; 73560; 99212; J1010; J2003

== ENCOUNTER 2024-11-12 14:51 | Outpatient (AMB) | payer MEDICAID, SELFPAY ==
[2024-11-12 15:09] VITALS: BMI 24.2
--- NOTE | 2024-11-12 15:09 | A.OFFVIS_ITS ---
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 States he was seen with his PCP who ordered Xrays and referred him to orthopedics. He had severe pain and was seen in ED where another set of xraus were taken, and was told he has no fracture. Currently states his pain is worse in the morning, severe stiffness inthe AM, difficulty walking up a flight of stairs, pain is at his medial aspect of knee, and states it very tender. States his knee gives out when walking. Denies numbness or tingling in toes. Allergies No Known Allergies Allergy (Verified 11/12/24 15:13) Medication List - Last Reconciled 11/12/24 by Anai Yañez PA-C acetaminophen (Tylenol Extra Strength) 500 mg PO Q6H PRN albuterol sulfate 90 mcg/actuation 2 puffs inhalation QID PRN bisacodyl 5 mg PO BEDTIME 2 days bisacodyl (Dulcolax (bisacodyl)) 10 mg (2 x 5 mg) PO ONCE 1 day fluticasone propionate 100 mcg/actuation (Flovent Diskus) 1 puff PO BID hydroxyzine HCl 1 tab PO DAILY PRN montelukast 1 tab PO QPM naproxen 500 mg PO BID PRN 10 days polyethylene glycol 3350 (Miralax) 17 grams PO DAILY 1 day polyethylene glycol 3350 (Miralax) 238 grams PO ONCE 1 day tiotropium bromide 2.5 mcg/actuation (Spiriva Respimat) 2 puffs inhalation DAILY HPI HPI 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 He continues to have ongoing pain along the medial joint line since his injury. He states he has a sharp shooting pain when he twist or pivot. He was seen by his PCP and also in the emergency department. [facility] Medical History COVID-19 vaccine series completed COPD (chronic obstructive pulmonary disease) Hyperlipidemia Liver fibrosis Depression Insomnia Hx of hepatitis Shortness of breath Surgical History No history of previous surgery Family History Father Kidney disease Mother No problems noted. 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 Tenderness along the media l joint line. ROM full with crepitus. Negative steinmans. No ligamentous laxity. NVI. Office Procedures AMB Joint Injection/Aspiration Joint Injection/Aspiration Primary Site: right knee Prep: site was prepped using aseptic technique, ethochloride spray was applied and injection warnings given Injected: 80 mg of, DepoMedrol, with 8 mL of, 1% plain lidocaine and in the joint Approach Used: anterolateral Procedure: The patient tolerated the procedure well and there was some relief with the local anesthesia Coding 10690 - Glenohumeral/Tronchanteric Bursa/Intraarticular Procedure code (CPT) selection complete Results Reviewed Results Reviewed: Xrays were obtained in the office today and personally reviewed by me of the right knee show mild oa. no acute fracture or dislocations Assessment & Plan Assessment & Plan (1) Osteoarthritis of right knee: Code(s): M17.11 - Unilateral primary osteoarthritis, right knee Category: Medical Plan: We discussed options today, which include steroid injection. The patient did consent to move forward with the injection, which was tolerated well.? I recommended rest, ice and elevation and OTC antiinflammatories prn for discomfort. If symptoms persist over the next 6-8 weeks, they will contact our office, otherwise, prn Orders: Orders XR knee LT 1V Today M25.562 - Pain in left knee PT Evaluation and Treatment Today M17.11 - Unilateral primary osteoarthritis, right knee XR knee RT 2V Today M25.569 - Pain in unspecified knee Medications: New celecoxib (Celebrex) 200 mg PO BID 60 caps 3RF 30 days Coding Level of Care Code New Pt Level 3 (39566) Complex EM visit Add On G2211 Diagnoses Osteoarthritis of right knee M17.11 CPT Codes Coding - Joint 7: 49154 - Glenohumeral/Tronchanteric Bursa/Intraarticular ([id number])
--- OUTSIDE RECORDS SUMMARY | 2024-11-12 17:02 | XMS_ITS | Clinical Summary ---
Author Organization [employer] Address [address] [facility] [address] [place] [address] Care Team Providers Care Industrial Management Teacher Name Role Phone Rupinder Cronin MD Primary Care Provide r Allergies No known active allergies Medications buPROPion SR (Wellbutrin SR) 150 MG 12 hr tabletIndications: Smoker Take 1 tablet (150 mg) by mouth 2 times daily. Do not crush, chew, or split. 180 tablet 1 3 Active varenicline (Chantix) 1 MG tabletIndications: Smoker Take 1 tablet (1 mg) by mouth 2 times daily. Take with full glass of water. 60 tablet 1 3 Active Varenicline Tartrate, Starter, (Chantix Starting Month ) 0.5 MG X 11 & 1 MG X 42 tablet therapy packIndications:Sm oker Take 1 tablet by mouth in the morning. 53 each 3 Active hydrOXYzine HCl (Atarax) 25 MG tabletIndications: Anxiety with depression Take 1 tablet by mouth once daily as needed 30 tablet 3 3 Active mirtazapine (Remeron) 15 MG tabletIndications: Anxiety with depression Take 1 tablet (15 mg) by mouth at bedtime. 90 tablet 3 Active montelukast (Singulair) 10 MG tabletIndications: Allergy, sequela Take 1 tablet by mouth once daily 90 tablet 2 4 Active Spacer/Aero-Holdin g Chambers (OptiChamber Shahnaz) misc 1 each every 4 (four) hours if needed (asthma). 1 each 4 Active atorvastatin (Lipitor) 40 MG tabletIndications: Hyperlipidemia, unspecified hyperlipidemia type Take 1 tablet by mouth once daily 90 tablet 1 4 Active azithromycin (Zithromax) 250 MG tabletIndications: Chronic obstructive pulmonary disease with acute exacerbation (CMS/HCC) Take 2 tabs PO daily x 1d then 1 tab PO daily on D2 to D5 6 tablet 5 Active Mometasone Furoate (Asmanex HFA) 100 MCG/ACT aerosolIndications :Chronic obstructive pulmonary disease with acute exacerbation (CMS/HCC) Inhale 1 puff in the morning and at bedtime. Rinse mouth with water after use to reduce aftertaste and incidence of candidiasis. Do not swallow., 13 g 3 5 Active tiotropium (Spiriva Respimat) 2.5 MCG/ACT inhalerIndications :Chronic obstructive pulmonary disease with acute exacerbation (CMS/HCC) Inhale 2 puffs once daily 1 each 2 5 Active albuterol 108 (90 Base) MCG/ACT inhalerIndications :Chronic obstructive pulmonary disease with acute exacerbation (CMS/HCC) Inhale 2 puffs every 4 (four) hours if needed for wheezing. 18 g 2 5 026 Active cyanocobalamin (Vitamin B-12) 1000 MCG tabletIndications: Vitamin B12 deficiency TAKE 1 TABLET BY MOUTH ONCE DAILY 90 tablet 5 Active lidocaine (Lidoderm) 5 % patchIndications:A cute pain of right knee,Injury of right knee, initial encounter Apply 1 patch topically Once per day. Remove & discard patch within 12 hours or as directed by MD. 30 patch 5 Active Active Problems Problem Noted Date Diagnosed Date Acute pain of right knee 09/16/2024 Assessment & Plan (10/27/2024 5:58 PM EST): Recent knee x-rays are within normal limits. I discussed with patient that he probably has either early arthritis of the knees versus ligamentous or meniscal compromise. Discussed about continuing as needed Tylenol or Motrin. I will refer to PT, we discussed about cautions with fall, he does not want to use a cane for now. I gave her information regarding orthopedic referral ordered by [facility] provider last month, he will call to make his appointment. Right knee injury 09/16/2024 Assessment & Plan [...] Encounters Date Type Department Care Team Description 11/07/2024 Population Health Risk Score [facility] (C3) Department [address] [id number] Provider, Population Health Generic 10/27/2024 3:20 PM EST Office Visit [facility] [address] [place] [address] Magi Raphael MD Acute pain of right knee (Primary Dx) 10/03/2024 Telephone [facility] [address] [place] [address] Nusrat Lam RN Results 09/23/2024 Orders Only [facility] External Provider, [facility] 09/16/2024 1:00 PM EST Office Visit [facility] [address] [place] [address] Rupinder Cronin MD Acute pain of right knee (Primary Dx); Injury of right knee, initial encounter 09/06/2024 Refill [facility] [address] [place] [address] Rupinder Cronin MD Vitamin B12 deficiency 09/05/2024 2:00 PM EST Office Visit [facility] [address] [place] [address] [facility] Chronic obstructive pulmonary disease with acute exacerbation ([facility]/HCC) (Primary Dx); Chronic obstructive pulmonary disease, unspecified [...] Sign Reading Time Taken Comments Blood Pressure 110/71 10/27/2024 3:31 PM EST Pulse 84 10/27/2024 3:31 PM EST Temperature 36.7 ??C (98.1 ??F) 10/27/2024 3:31 PM ES T Respiratory Rate 16 10/27/2024 3:31 PM EST Oxygen Saturation 98% 10/27/2024 3:31 PM EST Inhaled Oxygen Concentration - - Weight 75.8 kg (167 lb) 10/27/2024 3:31 PM EST Height 170.2 cm (5' 7 ) 09/16/2024 12:55 PM EST Body Mass Index 26.16 09/16/2024 12:55 PM EST Plan of Treatment Upcoming Encounters Date Type Department Care Team (Late st Contact Info) Description 11/24/2024 1:30 PM EDT Office Visit [facility] [address] [place] [address] Rupinder Cronin MD [address] [place] [address] Health Maintenance Due Date Last Done Comments [...] 11/23/2023, 08/24/2022, 09/02/2021 Influenza Vaccine (#1) 2024 , 05/23/2019, 08/11/2016, Additional history exists Depression Screening [...] Region Laterality Modality Lower Extremities, Knee Right [facility] 09/23/2024 10:1 3 AM EST Narrative 09/23/2024 10:23 AM EST ? [facility] ?[address] ?[place] [address] ?XRay Report ? Signed ? Patient: Machado,Memo L ?MR#: [id number] ?? 5 ? : 1960 ?Acct:[id number] ? Age/Sex: 64 / M ?ADM Date: 01/28/25 ? Loc: HO.ED ? Attending Dr: ? Ordering Physician: Generic ED Physician ?? Date of Service: 09/23/24 ?? Procedure(s): XR knee RT 4V ?? Accession Number(s): [id number] ? cc: Rupinder Cronin MD; Generic ED [...] DD/ 1013 ? TD/TT: 09/23/24 1016 ? Roper Operator: ? Procedure Note Don[place]ter, Image - 09/23/2024 [place] [id number] XRay Report Signed Patient: Memo Machado LMR#: [id number] 5 : 1960cct:[id number] Age/Sex: 64 / MADM Date: 09/23/24 Loc: HO.ED Attending Dr: Ordering Physician: Generic ED Physician Date of Service: 09/23/24 Procedure(s): XR knee RT 4V Accession Number(s): [id number] cc: Rupinder Cronin MD; Generic ED Physician [...] 09/23/24 1019 DD/ 1013 TD/TT: 09/23/24 1016 Roper Operator: Result [facility] External Provider IMG XR PROCEDURES Final Result * Influenza B (ID NOW Rapid Molecular) (09/05/2024 4:22 PM EST) [facility] Influenza B Negative Negative, Indeterminate [facility] Swab 09/05/2024 4:22 PM EST Result [facility] COMPRESSOR HOUSE OPERATOR POINT OF CARE TEST ENTER/EDIT ORDERABLES Final Result Performing Organization Address [facility] Co de Phone Number [facility] [address] [place] [phone] * Influenza A (ID NOW Rapid Molecular) (09/05/2024 4:22 PM EST) [facility] Influenza A Negative Negative, Indeterminate [facility] Swab 09/05/2024 4:22 PM EST Result [facility] COMPRESSOR HOUSE OPERATOR POINT OF CARE TEST ENTER/EDIT ORDERABLES Final Result Performing Organization Address [facility] Co de Phone Number [facility] [address] [place] [phone] * POCT rapid strep A manually resulted (09/05/2024 4:22 PM EST) [facility] Rapid Strep A Screen Negative Negative, None Detected [facility] Swab 09/05/2024 4:22 PM EST Result [facility] COMPRESSOR HOUSE OPERATOR POINT OF CARE TEST ENTER/EDIT ORDERABLES Final Result Performing Organization Address [facility] Co de Phone Number [facility] [address] [place] [phone] * POCT Rapid COVID Ag (09/05/2024 4:22 PM EST) Rapid COVID Ag Negative [facility] Swab 09/05/2024 4:22 PM EST [facility] COMPRESSOR HOUSE OPERATOR POINT OF CARE TEST ENTER/EDIT ORDERABLES Final Result [facility] [address] [place] [phone] * Cologuard?? colon cancer screening (02/17/2024 11:08 AM EDT) Cologuard Result Negative Negative 02/27/20 1:22 AM EDT Node1 (CLIA #:[id number]) Comment: NEGATIVE TEST RESULT. A negative Cologuard [...] cancer. ??Following a negative Cologuard result, the [employer] Cancer Society and U.S. Multi-Society Task Force screening guidelines recommend a Cologuard re-screening interval of 3 years. References: [employer] Guideline for Colorectal Cancer Screening: https://www.cancer.org/cancer/otnmg-lbfxql-dodcub/hdnyesigq-giryokpou-axlbpbi/ac s-rec ommendations.html.; Gt DK, Aidee CR, Sarkis LyleK, Colorectal Cancer Screening: Recommendations for Physicians and Patients from the U.S. Multi-Society Task Force on Colorectal Cancer Screening , Am J Gastroenterology 2017; 112:6558-6649. TEST DESCRIPTION: Composite algorithmic analysis of stool [...] (Umm Rollins al, N Engl J Med 2014;370(14):4381-6674.) Cologuard may produce a false negative or false positive result (no colorectal cancer or precancerous polyp present at colonoscopy follow up). A negative Cologuard test result does not guarantee the absence of CRC or advanced adenoma (pre-cancer). The current Cologuard screening interval is every 3 years. ([employer] Society and U.S. Multi-Society Task Force). Cologuard performance data in a 10,000 patient pivotal study using colonoscopy as the reference method can be accessed at the following location: www.[employer].GTI/results. Additional description of the Cologuard test process, warnings and precautions can be found at www.[employer]our[employer].com. Stool specimen (specimen) Rectal contents / Unknown 02/17/2024 11:08 AM EDT 02/19/2024 2:34 PM EDT us Rupinder Snider MD LAB MOLECULAR DIAGNOS TICS ORDERABLES Final Result Node1 (CLIA #:[id number]) [address] [place] [address], [place] [phone] * (ABNORMAL) Lipid Panel, Standard (12/24/2023 9:47 AM EDT) Triglycerides 127 <150 mg/dL [facility] Comment:Desirable Triglyceri de: less than 150 mg/dLBorderline High Triglyceride 150-199 mg/dLHigh Triglyceride: 200-499 mg/dLVery High Triglyceride: greater than or equal to 5OO mg/dL Cholesterol 239(H) <200 mg/dL [facility] Comment:Desirable Cholestero l: less than 200 mg/dLBorderline High Cholesterol: 200-239 mg/dLHigh Cholesterol: greater than 239 mg/dL LDL Cholesterol Calculated 169(H) <100 mg/dL [facility] Comment:Desirable LDL: less than 100 mg/dLNear Optimal/Above Optimal LDL: 110- 129 mg/dLBorderline High LDL: 130-159 mg/dLHigh LDL: 160-189 mg/dLVery High LDL: greater than or equal to 190 mg/dL HDL Cholesterol 45 >40 mg/dL [facility] Comment:Desirable HDL: great er than 40 mg/dL Note: This HDL assay may give artificially low results in patients with liver disease. Blood Venous blood specimen / Unknown 12/24/2023 9:47 AM EDT 12/24/2023 11:39 AM EDT us Rupinder Snider MD LAB BLOOD ORDERABLES Final Result [facility] [address] [place] [phone] * HIV 1/2 ANTIGEN/ANTIBODY,FOURTH GENERATION W/RFL (03/08/2022 2:33 PM EDT) HIV-1/2 ANTIGEN AND ANTIBODIES, 4TH GENERATION W/ REFLEX NON-REACT RUBI NON-REACT RUBI [facility] Comment: HIV-1 antigen and HIV-1/HIV-2 [...] ? For additional information please refer to http://education.[employer]Pointe/faq/PVB867 (This link is being provided for informational/ educational purposes only.) ? The performance of this assay has not been clinically validated in patients less than 2 years old. ?? 03/08/2022 2:33 PM EDT Rupinder Snider MD LAB BLOOD ORDERABLES Final Result [facility] Anywhere [address] from Last 3 Months or Most Recently Relevant to Health Maintenance Insurance [facility] C3 Care Teams Industrial Management Teacher Relationship Specialty Start Date End Date Rupinder Cronin MD [address] [place] [phone] PCP - General Family Medicine 07/22/18
--- OUTSIDE RECORDS SUMMARY | 2024-11-12 17:02 | XMS_ITS | Encounter Summary ---
Author Organization [employer] Address [address] [facility] 7t [place] [address] Care Team Providers Care Product Safety Manager Name Role Phone Rupinder Cronin MD Primary Care Provide r Encounter Details Date Type Department Care Team (Late st Contact Info) Description 11/07/2024 Population Health Risk Score [facility] (C3) Department [address] [phone] Provider, Population Health Generic Social History Tobacco Use Types Packs/Day Years [...] as of this encounter Plan of Treatment Upcoming Encounters Date Type Department Care Team (Late st Contact Info) Description 11/24/2024 1:30 PM EDT Office Visit [facility] [address] [place] [address] Rupinder Cronin MD [address] [place] [address] documented as of this encounter Visit Diagnoses Not on filedocumented in this encounter Additional Health Concerns Assessment Noted Time PHQ-9 Depression Total Score: 0 11/23/19 24 10:27 AM EDT documented as of this encounter Care Teams Product Safety Manager Relationship Specialty Start Date End Date Rupinder Cronin MD [address] [place] [phone] PCP - General Family Medicine 07/22/18 documented as of this encounter
--- OUTSIDE RECORDS SUMMARY | 2024-11-12 17:02 | XMS_ITS | Encounter Summary ---
Author Organization [employer] Address [address] [facility] [address] [place] [address] Care Team Providers Care Quickbooks Bookkeeper Name Role Phone Rupinder Cronin MD Primary Care Provide r Reason for Referral * Consultation (Routine) - Closed Specialty Diagnoses / Procedures Referred By Contac t Referred To Contact Physical Therapy Diagnoses Acute pain of right knee Magi Raphael MD [address] [place] [phone] Phone: tel: fax: [facility] Physical Therapy [address] [place], [place] Phone: tel: fax: Referral ID Status Reason Start Date Expiration Date V isits Requested Visits Authorized [id number] Closed Specialty Services Required 10/27/2024 10/27/2025 20 20 Reason for Visit * Reason Comments Foot Pain Encounter Details Date Type Department Care Team (Late st Contact Info) Description 10/27/2024 3:20 PM EST Office Visit [facility] [address] [place] [phone] Magi Raphael MD [address] [place] [phone] Acute pain of right knee (Primary Dx) Social History Tobacco Use Types Packs/Day Years [...] (167 lb) 10/27/2024 3:31 PM EST Height - - Body Mass Index 26.16 09/16/2024 12:55 PM EST documented in this encounter Progress Notes * Magi Raphael MD - 10/27/2024 3:20 PM EST SUBJECTIVE: Memo Machado is a 64 y.o. year old adult who presents for Walk In Center/right knee pain . Denies recent illness, injury, or hospitalization. Acute Concerns: Patient here for complaining of persistent right knee pain, partial improvement with ibuprofen and Tylenol. He complains of progressive right knee weakness and difficulty ambulating more than 2 blocks. He has not had any recent falls or accidents but he has difficulty negotiating stairs. Social History Social History Narrative Not on [...] history on file. Review of Systems Constitutional: Negative for chills, fatigue and fever. HENT: Negative for congestion, ear pain, nosebleeds, rhinorrhea, sinus pressure, sore throat and trouble swallowing. Eyes: Negative for pain and discharge. Respiratory: Negative for cough, chest tightness and shortness of breath. Cardiovascular: Negative for chest pain, palpitations and leg swelling. Gastrointestinal: Negative for abdominal pain, blood in stool, constipation, diarrhea and nausea. Endocrine: Negative for polydipsia and polyuria. Genitourinary: Negative for dysuria, frequency, genital sores, pelvic pain and vaginal discharge. Musculoskeletal: Positive for arthralgias, gait problem and joint swelling. Negative for back pain and neck pain. Skin: Negative for rash. Allergic/Immunologic: Negative for environmental allergies. Neurological: Negative for dizziness, seizures, weakness, light-headedness and headaches. Hematological: Negative for adenopathy. Psychiatric/Behavioral: Negative for agitation, behavioral problems, self-injury and suicidal ideas. OBJECTIVE: Vitals: 10/27/24 1531 BP: 110/71 Pulse: 84 Resp: 16 Temp: 98.1 ??F (36.7 ??C) SpO2: 98% Physical Exam HENT: Right Ear: Tympanic membrane and ear canal normal. Left Ear: Tympanic membrane and ear canal normal. Mouth/Throat: Mouth: Mucous membranes are moist. Pharynx: No oropharyngeal exudate or posterior oropharyngeal erythema. Eyes: Pupils: Pupils are equal, round, and reactive to light. Cardiovascular: Rate and Rhythm: Regular rhythm. Pulses: Normal pulses. Heart sounds: Normal heart sounds. No murmur heard. Pulmonary: Breath sounds: Normal breath sounds. Abdominal: General: Bowel sounds are normal. Palpations: Abdomen is soft. Tenderness: There is no abdominal tenderness. Musculoskeletal: General: Normal range of motion. Cervical back: Neck supple. Right knee: Bony tenderness and crepitus present. Tenderness present over the medial joint line. Left knee: Crepitus present. Skin: General: Skin is warm. Neurological: General: No focal deficit present. Mental Status: Memo is alert and oriented to person, place, and time. Psychiatric: Mood and Affect: Mood normal. Behavior: Behavior normal. Problem List Items Addressed This Visit Acute pain of right knee - Primary Recent knee x-rays are within normal limits. [...] her information regarding orthopedic referral ordered by [facility] provider last month, he will call to make his appointment. Relevant Orders Referral to Physical Therapy Follow Up: Current Outpatient Medications on File Prior to [...] once daily as needed 30 tablet 3 lidocaine (Lidoderm) 5 % patch Apply 1 patch topically Once per day. Remove & discard patch within 12 hours or as directed by MD. 30 patch 0 mirtazapine (Remeron) 15 MG tablet Take 1 [...] by mouth once daily 90 tablet 2 Spacer/Aero-Holding Chambers (OptiChamber Shahnaz) mis 1 each every 4 (four) hours if [...] facility-administered medications on file prior to visit. documented in this encounter Miscellaneous Notes * Assessment & Plan Note - Magi Raphael MD - 10/27/2024 5:58 PM EST Associated Problem(s): Acute pain of right knee Recent knee x-rays are within normal limits. [...] her information regarding orthopedic referral ordered by [facility] provider last month, he will call to make his appointment. documented in this encounter Plan of Treatment Upcoming Encounters Date Type Department Care Team (Late st Contact Info) Description 11/24/2024 1:30 PM EDT Office Visit [facility] [address] [place] [phone] Rupinder Cronin MD [address] [place] [address] Scheduled Referrals Name Type Priority Associated Diagnoses Orde r Schedule Referral to Physical Therapy Outpatient Referral Routine Acute pain of right knee Expected: 10/27/2024 (Approximate), Expires: 10/27/2025 documented as of this encounter Visit Diagnoses Diagnosis Acute pain of right knee- Primary documented in this encounter Additional Health Concerns Assessment Noted Time PHQ-9 Depression Total Score: 0 11/23/19 24 10:27 AM EDT documented as of this encounter Care Teams Quickbooks Bookkeeper Relationship Specialty Start Date End Date Rupinder Cronin MD [address] [place] [phone] PCP - General Family Medicine 07/22/18 documented as of this encounter
== END 2024-11-12 15:47 | disposition home or self-care (01) ==
LOC: HO.HOS 14:52
PROVIDERS: PCP Internal Medicine; Visit Provider Physician Assistant
DX: M17.11 Unilateral primary osteoarthritis, right knee (principal)
CPT/HCPCS: 20610; 99203

== ENCOUNTER → 2024-11-12 14:56 | Outpatient (BNV) | payer MEDICAID, SELFPAY | PROVIDERS: Visit Provider Specialist | DX: M25.561 Pain in right knee (principal) | CPT/HCPCS: 73560 ==

== ENCOUNTER 2025-06-11 09:20 | Outpatient (REF) | payer MEDICAID, SELFPAY ==
--- OUTSIDE RECORDS SUMMARY | 2025-06-08 15:15 | XMS_ITS | Encounter Summary ---
Author Organization [employer] Address [address] [facility] 7[address] [place] [address] Care Team Providers Care Counter Clerk Name Role Phone Rupinder Cronin MD Primary Care Provide r Jani Pappas PharmD Unavailable [phone] Encounter Details Date Type Department Care Team (Late st Contact Info) Description 06/08/2025 3:15 PM EDT Telemedicine [facility] [address] [place] [address] Rupinder Cronin MD [address] [place] [address] Pulmonary emphysema (HCC) (Primary Dx); Dietary counseling; Exercise counseling; Chronic hepatitis C without hepatic coma (HCC); Upper abdominal pain Social History Tobacco Use Types Packs/Day Years Used Date Smoking Tobacco: Every Day Cigarettes 0.8 43.8 Started: 1981 Passive Smoke Exposure: Past Smokeless Tobacco: Never Alcohol Use Standard Drinks/Week Comments Never 0 (1 standard drink = 0.6 oz pur e alcohol) Depression Answer Date Recorded Patient Health Questionnaire-9 Score 6 01/30/2025 Patient Health Questionnaire-9 Score 6 01/30/2025 Last PHQ-9: Questionnaire Data Not on file 0 01/30/2025 Housing Stability Answer Date Recorded What is your housing situation today? I have maribel bonilla 01/21/[address] you li ve. Do you have problems with any of the following? None of the above 01/21/2025 Food Insecurity Answer Date Recorded Within the past 12 months, y ou worried that your food would run out before you got money to buy more: Never True 01/21/2025 Within the past 12 months,th e food you bought just didn't last and you didn't have enough money to get more: Never True Transportation Answer Date Recorded In the past 12 months, has l ack of transportation kept you from medical appts, meetings, work or from getting things needed for daily living? No 01/21/2025 Utilities Answer Date Recorded In the past 12 months, has t he electric, gas, oil or water company threatened to shut off services in your home? No 01/21/2025 Depression Answer Date Recorded Patient Health Questionnaire-2 Score 2 01/30/2025 Internet Access Answer Date Recorded Internet Access Q1 Yes 01/21/2025 Internet Access Q2 Not on file 01/21/2025 Sex and Gender Information Value Date Recorded Sex Assigned at Male 06/26/2022 10:21 AM EDT Legal Sex Male 10:21 AM EDT Gender Identity Choose not to disclose 10:21 AM EDT Sexual Orientation Choose not to disclose 2021 10:21 AM EDT documented as of this encounter Progress Notes * Rupinder Snider MD - 06/08/2025 3:15 PM EDT SUBJECTIVE: Memo Machado is a 64 y.o. year old adult who presents for Follow up . Acute Concerns: Patient reports he has being having upper abdominal pain and because he has his h/o liver disease and hepatitis C he got concern Patient today also asking for refills for his inhalers Social History Social History Narrative Not on file Problem List[1] Family History[2] Review of Systems Constitutional: Negative. HENT: Negative. Respiratory: Negative. Cardiovascular: Negative. Gastrointestinal: Positive for abdominal distention and abdominal pain. Negative for anal bleeding,blood in stool, constipation, diarrhea, nausea, rectal pain and vomiting. Follow Up: No follow-ups on file. Medications Ordered Prior to Encounter[3] Problem List Items Addressed This Visit Pulmonary emphysema (HCC) - Primary Patient savings counselor to quit smoking he is already on treatment and being follow by pharmacy CDTM I refilled his inhalers Relevant Medications albuterol (Ventolin HFA) 108 (90 Base) MCG/ACT inhaler Tiotropium [place] (Spiriva Respimat) 2.5 MCG/ACT aerosol solution Chronic hepatitis C without hepatic coma (HCC) Labs already ordered I advise to do them I will contact him with results I advise to call to schedule his US Relevant Medications famotidine (Pepcid) 20 MG tablet Upper abdominal pain I advise patient to avoid NSAIDs, spicy and acid food, I advise to eat at the same time every day, I advise to elevate the head of the bed and take medications as prescribe H pylori test ordered Famotidine prescribed Relevant Medications famotidine (Pepcid) 20 MG tablet Other Relevant Orders Helicobacter pylori Antigen, EIA, Stool Other Visit Diagnoses Dietary counseling Exercise counseling [1] Patient Active Problem List Diagnosis Chronic hepatitis C (CMS/HCC) (HCC) Pulmonary emphysema (HCC) Hepatic fibrosis Hyperlipidemia Intra-abdominal lymphadenopathy Insomnia Mixed anxiety and depressive disorder Smoker Thyrotoxicosis Screening for lung cancer Colon cancer screening COPD with acute exacerbation (CMS/HCC) (HCC) Bilateral leg pain Chronic bursitis of right shoulder Chronic right shoulder pain Chronic neck pain Acute pain of right knee Right knee injury Tobacco dependence Chronic hepatitis C without hepatic coma (HCC) Upper abdominal pain [2] No family history on file. [3] Current Outpatient Medications on File Prior to Visit Medication Sig Dispense Refill atorvastatin (Lipitor) 40 MG tablet TAKE 1 TABLET BY MOUTH EVERY DAY 90 tablet 1 cyanocobalamin (Vitamin B-12) 1000 MCG tablet TAKE 1 TABLET BY MOUTH ONCE DAILY 90 tablet 0 montelukast (Singulair) 10 MG tablet Take 1 tablet by mouth once daily 90 tablet 2 Spacer/Aero-Holding Chambers (OptiChamber Shahnaz) misc 1 each every 4 (four) hours if needed (asthma). 1 each 0 varenicline (Chantix) 1 MG tablet Take 1 tablet (1 mg) by mouth 2 times daily. Take with full glassof water. 56 tablet 1 [DISCONTINUED] tiotropium (Spiriva Respimat) 2.5 MCG/ACT inhaler Inhale 2 puffs once daily 1 each 2 [DISCONTINUED] tiotropium (Spiriva Respimat) 2.5 MCG/ACT inhaler INHALE 2 PUFFS BY MOUTH EVERY DAY 4 g 2 [DISCONTINUED] Ventolin HFA 108 (90 Base) MCG/ACT inhaler INHALE 2 PUFFS BY MOUTH EVERY 4 HOURS NEEDED FOR WHEEZING OR SHORTNESS OF BREATH 18 g 2 No current facility-administered medications on file prior to visit. documented in this encounter Miscellaneous Notes * Assessment & Plan Note - Rupinder Snider MD - 06/08/2025 3:14 PM EDT Associated Problem(s): Pulmonary emphysema (HCC) Patient savings counselor to quit smoking he is already on treatment and being follow by pharmacy CDTM I refilled his inhalers * Assessment & Plan Note - Rupinder Snider MD - 06/08/2025 3:13 PM EDT Associated Problem(s): Upper abdominal pain I advise patient to avoid NSAIDs, spicy and acid food, I advise to eat at the same time every day, I advise to elevate the head of the bed and take medications as prescribe H pylori test ordered Famotidine prescribed * Assessment & Plan Note - Rupinder Snider MD - 06/08/2025 3:13 PM EDT Associated Problem(s): Chronic hepatitis C without hepatic coma (HCC) Labs already ordered I advise to do them I will contact him with results I advise to call to schedule his US documented in this encounter Plan of Treatment Upcoming Encounters Date Type Department Care Team (Late st Contact Info) Description 06/24/2025 10:30 AM EDT Telemedicine [facility] [address] [place] [address] Jani Pappas, PharmD [address] [place] [address] Scheduled Orders Name Type Priority Associated Diagnoses Orde r Schedule Helicobacter pylori Antigen, EIA, Stool Lab Routine Upper abdominal pain Expected: 06/08/2025, Expires: 06/08/2026 documented as of this encounter Visit Diagnoses Diagnosis Pulmonary emphysema (HCC)- Primary Other emphysema Dietary counseling Dietary surveillance and counseling Exercise counseling Chronic hepatitis C without hepatic coma (HCC) Upper abdominal pain documented in this encounter Additional Health Concerns Assessment Noted Time PHQ-9 Depression Total Score: 6 01/31/20 25 1:13 PM EDT documented as of this encounter Care Teams Counter Clerk Relationship Specialty Start Date End Date Rupinder Cronin MD [address] [place] [address] PCP - General Family Medicine 07/22/18 Jani Pappas, AmarilysD [address] [place] [address] Pharmacist Pharmacy 04/14/25 documented as of this encounter
--- OUTSIDE RECORDS SUMMARY | 2025-06-11 10:34 | XMS_ITS | Clinical Summary ---
Author Organization [facility] Address [address] [facility] 7[address] [place] [address] Care Team Providers Care Sand Plant Attendant Name Role Phone Rupinder Cronin MD Primary Care Provide r Jani Pappas PharmD Unavailable [phone] Allergies No known active allergies Medications montelukast (Singulair) 10 MG tabletIndications :Allergy, sequela Take 1 tablet by mouth once daily 90 tablet 2 04/29/20 24 Active Spacer/Aero-Holdi ng Chambers (OptiChamber Shahnaz) misc 1 each every 4 (four) hours if needed (asthma). 1 each 04/29/20 24 Active cyanocobalamin (Vitamin B-12) 1000 MCG tabletIndications :Vitamin B12 deficiency TAKE 1 TABLET BY MOUTH ONCE DAILY 90 tablet 09/08/19 25 Active atorvastatin (Lipitor) 40 MG tabletIndications :Hyperlipidemia, unspecified hyperlipidemia type TAKE 1 TABLET BY MOUTH EVERY DAY 90 tablet 1 02/18/20 25 Active varenicline (Chantix) 1 MG tabletIndications :Tobacco dependence Take 1 tablet (1 mg) by mouth 2 times daily. Take with full glass of water. 56 tablet 1 05/04/20 25 Active albuterol (Ventolin HFA) 108 (90 Base) MCG/ACT inhalerIndication s:Pulmonary emphysema (HCC) Inhale 2 puffs every 6 (six) hours if needed for wheezing. 18 g 2 06/08/20 25 Active Tiotropium [place] (Spiriva Respimat) 2.5 MCG/ACT aerosol solutionIndicatio ns:Pulmonary emphysema (HCC) Inhale 2 puffs Once per day. INHALE 2 PUFFS BY MOUTH EVERY DAY 4 g 2 06/08/20 25 Active famotidine (Pepcid) 20 MG tabletIndications :Upper abdominal pain Take 1 tablet (20 mg) by mouth if needed in the morning and at bedtime for heartburn. 30 tablet 2 06/08/20 25 2025 Active tiotropium (Spiriva Respimat) 2.5 MCG/ACT inhalerIndication s:Pulmonary emphysema, unspecified emphysema type Inhale 2 puffs once daily 1 each 2 01/31/20 25 2024 Discontinued albuterol 108 (90 Base) MCG/ACT inhalerIndication s:Pulmonary emphysema, unspecified emphysema type Inhale 2 puffs every 4 (four) hours if needed for wheezing. 18 g 2 01/31/20 25 2024 Discontinued Ventolin HFA 108 (90 Base) MCG/ACT inhalerIndication s:Pulmonary emphysema, unspecified emphysema type INHALE 2 PUFFS BY MOUTH EVERY 4 HOURS NEEDED FOR WHEEZING OR SHORTNESS OF BREATH 18 g 2 05/25/20 25 2024 Discontinued(R eorder (will not trigger notification to Pharmacy)) tiotropium (Spiriva Respimat) 2.5 MCG/ACT inhaler INHALE 2 PUFFS BY MOUTH EVERY DAY 4 g 2 06/05/20 25 2024 Discontinued(R eorder (will not trigger notification to Pharmacy)) Active Problems Problem Noted Date Diagnosed Date Upper abdominal pain 06/08/2025 Assessment & Plan (06/08/2025 3:13 PM EDT): I advise patient to avoid NSAIDs, spicy and acid food, I advise to eat at the same time every day, I advise to elevate the head of the bed and take medications as prescribe H pylori test ordered Famotidine prescribed Tobacco dependence 01/30/2025 Chronic hepatitis C without hepatic coma 025 Assessment & Plan (06/08/2025 3:13 PM EDT): Labs already ordered I advise to do them I will contact him with results I advise to call to schedule his US Acute pain of right knee 09/16/2024 Assessment [...] her information regarding orthopedic referral ordered by [facility] provider last month, he will call to [...] neck pain 06/16/2024 COPD with acute exacerbation (CMS/HCC) Assessment & Plan (05/05/2024 4:46 PM EDT): Viral tests are NEG today. Ro bronchitis, I will rx z-pack Continue albuterol inh tid x 5d + asmanex bid. Call back prn if sxs do not resolve, may need PRD. Advised to not start smoking again Take tylenol prn BUSH, sore throat, CP. Screening for lung cancer 11/23/2023 Colon cancer screening 11/23/2023 Pulmonary emphysema 12/29/2022 Assessment & Plan (06/08/2025 3:14 PM EDT): Patient pet counselor to quit smoking he is already on treatment and being follow by pharmacy CDTM I refilled his inhalers Smoker 12/29/2022 Hepatic fibrosis 02/18/2018 Intra-abdominal lymphadenopathy 02/18/2018 Chronic hepatitis C (CMS/HCC) 12/20/2017 Hyperlipidemia 11/08/2017 Assessment & Plan (06/16/2024 4:14 PM EDT): Today extensive discussion was done about life style modifications I advise healthy diet (low calorie) and cardiovascular exercise Insomnia 11/08/2017 Mixed anxiety and depressive disorder 11/24/2014 Thyrotoxicosis 01/05/2012 Encounters Date Type Department Care Team Description 06/08/2025 3:15 PM EDT Telemedicine [facility] [address] [place] [phone] Rupinder Cronin MD Pulmonary emphysema (HCC) (Primary Dx); Dietary counseling; Exercise counseling; Chronic hepatitis C without hepatic coma (HCC); Upper abdominal pain 06/08/2025 Travel 06/05/2025 Refill [facility] [address] [place] [phone] Rupinder Cronin MD Pulmonary emphysema (HCC) 05/27/2025 10:00 AM EDT Telemedicine [facility] [address] [place] [phone] Jani Pappas PharmD Smoker (Primary Dx) 05/23/2025 Refill [facility] [address] [place] [phone] Rupinder Cronin MD Pulmonary emphysema, unspecified emphysema type (CMS/HCC) 05/14/2025 Telephone [facility] [address] [place] [phone] Rupinder Cronin MD Telephone Call 05/13/2025 10:30 AM EDT Telemedicine [facility] [address] [place] [phone] Jani Pappas PharmD Tobacco dependence (Primary Dx) 05/06/2025 Refill [facility] [address] [place] [phone] Rupinder Cronin MD Tobacco dependence 04/29/2025 2:30 PM EDT Telemedicine [facility] [address] [place] [phone] Jani Pappas PharmD Tobacco dependence (Primary Dx) 04/13/2025 Travel 03/13/2025 Telephone [facility] [address] [place] [phone] Rupinder Cronin MD from Last 3 Months Immunizations Immunization Administration Dates Next Due Influenza injectable quadriv alent IIV4 with preservative 08/24/2022,08/11/2016,08/17/2015 Influenza injectable quadriv alent preservative free 05/23/2019 Influenza, Split (incl. marquis fied surface antigen) 07/12/2015 Pfizer Covid-19 Vaccine 12+ 11/23/2023, Pneumococcal Conjugate PCV 13 08/30/2015 Pneumococcal Conjugate PCV 20 11/23/2023 Tdap 01/10/2018 Social History Tobacco Use Types Packs/Day Years Used Date Smoking Tobacco: Every Day Cigarettes 0.8 43.8 Started: 1981 Passive Smoke Exposure: Past Smokeless Tobacco: Never Tobacco Cessation:Ready to Q uit: Yes; Counseling Given: Yes Alcohol Use Standard Drinks/Week Comments Never 0 (1 standard drink = 0.6 oz pur e alcohol) Depression Answer Date Recorded Patient Health Questionnaire-9 Score 6 01/30/2025 Patient Health Questionnaire-9 Score 6 01/30/2025 Last PHQ-9: Questionnaire Data Not on file 0 01/30/2025 Housing Stability Answer Date Recorded What is your housing situation today? I have maribeltrell bonilla 01/21/[address] you [...] Sign Reading Time Taken Comments Blood Pressure 110/52 01/30/2025 1:13 PM EDT Pulse 76 01/30/2025 1:13 PM EDT Temperature 36 C (96.8 F) 01/30/2025 1:13 PM EDT Respiratory Rate 24 01/30/2025 1:13 PM EDT Oxygen Saturation 98% 10/27/2024 3:31 PM EST Inhaled Oxygen Concentration - - Weight 78 kg (172 lb) 01/30/2025 1:13 PM EDT Height 170.2 cm (5' 7 ) 01/30/2025 1:13 PM EDT Body Mass Index 26.94 01/30/2025 1:13 PM EDT Plan of Treatment Upcoming Encounters Date Type Department Care Team (Late st Contact Info) Description 06/24/2025 10:30 AM EDT Telemedicine [facility] [address] [place] [address] Jani Pappas, PharmD [address] [place], [place] [phone] Health Maintenance Due Date Last Done Comments CT Colonography 1961 Colonoscopy 1961 FIT 1961 Sigmoidoscopy 1961 Hepatitis A Vaccines (1 of 2 - Risk 2-dose series) 1980 Lung Cancer Screening 2011 Zoster Vaccines (1 of 2) 2011 Hepatitis B Vaccines (1 of 3 - Risk 3-dose series) 2021 RSV Patients and Patients Aged 60 years or older (1 - Risk 60-74 years 1-dose series) 2021 FOBT 02/16/2025 02/17/2024 COVID-19 Vaccine ( season) 2025 11/23/2023, 08/24/2022, 09/02/2021 Influenza Vaccine (#1) 2025 , 05/23/2019, 08/11/2016, Additional history exists SDOH Screening 01/21/2026 01/21/2025 Depression Screening 01/30/2026 01/30/2025, 01/31/20 25 Disability Screening 01/30/2026 01/30/2025 Tobacco Screening 04/14/2026 04/14/2025 Alcohol/Substance Use Screening 06/08/2026 06/08/2025 Colorectal Cancer Screening 02/16/2027 FIT DNA/Cologuard 02/16/2027 [...] patient's age to complete this topic Meningococcal B Vaccine Aged Out No l onger eligible based on patient's age to complete [...] Procedure Name Priority Date/Time Associated Diagnosis Comments LAB COLOGUARD COLON CANCER SCREEN Routine 02/17/2024 11:08 AM EDT Colon cancer screening LIPID PANEL, STANDARD Routine 12/24/2023 9:47 AM EDT Chronic hepatitis C without hepatic coma (CMS/HCC) Hepatic fibrosis HIV 1/2 ANTIGEN/ANTIBODY, FOURTH GENERATION W/RFL Routine 03/08/2022 2:33 PM EDT from Last 3 Months or Most Recently Relevant to Health Maintenance Results * Cologuard?? colon cancer screening (02/17/2024 11:08 AM EDT) Cologuard Result Negative Negative 02/27/20 1:22 AM EDT [email or web address] (CLIA #:[id number]) Comment: NEGATIVE TEST RESULT. A negative Cologuard result indicates a low likelihood that a colorectal cancer (CRC) or advanced adenoma (adenomatous polyps with more advanced pre-malignant features) is present. The chance that a person with a negative Cologuard test has a colorectal cancer is less than 1 in 1500 (negative predictive value >99.9%) or has an advanced adenoma is less than 5.3% (negative predictive value 94.7%). These data are based on a prospective cross-sectional study of 10,000 individuals at average risk for colorectal cancer who were screened with both Cologuard and colonoscopy. (Umm Haas et al, N Engl J Med 2014;370(14):4251-2151) The normal value (reference range) for this assay is negative. COLOGUARD RE-SCREENING RECOMMENDATION: Periodic colorectal cancer screening is an important part of preventive healthcare for asymptomatic individuals at average risk for colorectal cancer. Following a negative Cologuard result, the [place] [employer] and U.S. Multi-Society Task Force screening guidelines recommend a Cologuard re-screening interval of 3 years. References: [place] [employer] Guideline for Colorectal Cancer Screening: https://www.cancer.org/cancer/riswj-uahoaa-yznhcu/zxqwokknk-qheauuugb-jsawvjr/ac s-rec ommendations.html.; Gt DK, Aidee SILVER, Sarkis LyleK, Colorectal Cancer Screening: Recommendations for Physicians and Patients from the U.S. Multi-Society Task Force on Colorectal Cancer Screening , Am J Gastroenterology 2017; 112:3663-3824. TEST DESCRIPTION: Composite algorithmic analysis of stool DNA-biomarkers with hemoglobin immunoassay. Quantitative values of individual biomarkers are not [...] (Umm Rollins al, N Engl J Med 2014;370(14):1383-6806.) Cologuard may produce a false negative or false positive result (no colorectal cancer or precancerous polyp present at colonoscopy follow up). A negative Cologuard test result does not guarantee the absence of CRC or advanced adenoma (pre-cancer). The current Cologuard screening interval is every 3 years. ([place] [employer] and U.S. Multi-Society Task Force). Cologuard performance data in a 10,000 patient pivotal study using colonoscopy as the reference method can be accessed at the following location: www.MyMedMatch/results. Additional description of the Cologuard test process, warnings and precautions can be found at [email or web address]. Stool specimen (specimen) Rectal contents / Unknown 02/17/2024 11:08 AM EDT 02/19/2024 2:34 PM EDT Rupinder Snider MD LAB MOLECULAR DIAGNOS TICS ORDERABLES Final Result [email or web address] (CLIA #:[id number]) [address] [place] [address], * (ABNORMAL) Lipid Panel, Standard (12/24/2023 9:47 AM EDT) Triglycerides 127 <150 mg/dL [facility] Comment:Desirable Triglyceri de: less than 150 mg/dLBorderline High Triglyceride 150-199 mg/dLHigh Triglyceride: 200-499 mg/dLVery High Triglyceride: greater than or equal to 5OO mg/dL Cholesterol 239(H) <200 mg/dL [facility] Comment:Desirable Cholestero l: less than 200 mg/dLBorderline High Cholesterol: 200-239 mg/dLHigh Cholesterol: greater than 239 mg/dL LDL Cholesterol Calculated 169(H) <100 mg/dL [facility] Comment:Desirable LDL: less than 100 mg/dLNear Optimal/Above Optimal LDL: 110- 129 mg/dLBorderline High LDL: 130-159 mg/dLHigh LDL: 160-189 mg/dLVery High LDL: greater than or equal to 190 mg/dL HDL Cholesterol 45 >40 mg/dL [facility] Comment:Desirable HDL: great er than 40 mg/dL Note: This HDL assay may give artificially low results in patients with liver disease. Blood Venous blood specimen / Unknown 12/24/2023 9:47 AM EDT 12/24/2023 11:39 AM EDT Rupinder Snider MD LAB BLOOD ORDERABLES Final Result [facility] [address] [place] [phone] * HIV 1/2 ANTIGEN/ANTIBODY,FOURTH GENERATION W/RFL (03/08/2022 2:33 PM EDT) [facility] HIV-1/2 ANTIGEN AND ANTIBODIES, 4TH GENERATION W/ REFLEX NON-REACT RUBI NON-REACT RUBI [facility] Comment: HIV-1 antigen and HIV-1/HIV-2 antibodies were not detected. There is no laboratory evidence of HIV infection. PLEASE NOTE: This information has been disclosed to you from records whose confidentiality may be protected by state law. If your state requires such protection, then the state law prohibits you from making any further disclosure of the information without the specific written consent of the person to whom it pertains, or as otherwise permitted by law. A general authorization for the release of medical or other information is NOT sufficient for this purpose. For additional information please refer to http://[email or web address]/faq/QMK913 (This link is being provided for informational/ educational purposes only.) The performance of this assay has not been clinically validated in patients less than 2 years old. 03/08/2022 2:33 PM EDT us Rupinder Snider MD LAB BLOOD ORDERABLES Final Result [facility] [address] from Last 3 Months or Most Recently Relevant to Health Maintenance Insurance [facility] C3 Care Teams Sand Plant Attendant Relationship Specialty Start Date End Date Rupinder Cronin MD [address] [place] [address] PCP - General Family Medicine 07/22/18 Jani Pappas, PharmD [address] [place], [place] Pharmacist Pharmacy 04/14/25
--- OUTSIDE RECORDS SUMMARY | 2025-06-11 10:34 | XMS_ITS | Encounter Summary ---
Author Organization [facility] Address [address] [facility] 7t [place] [address] Care Team Providers Care Regulatory Attorney Name Role Phone Rupinder Cronin MD Primary Care Provide r Jani Pappas PharmD Unavailable [phone] Reason for Visit * Reason Comments Med Refill Encounter Details Date Type Department Care Team (Late st Contact Info) Description 05/06/2025 Refill [facility] [address] [place] [address] Rupinder Cronin MD [address] [place] [address] Tobacco dependence Social History Tobacco Use Types Packs/Day Years [...] Info) Description 06/24/2025 10:30 AM EDT Telemedicine [facility] [address] [place] [address] Jani Pappas, PharmD [address] [place] [address] documented as of this encounter Visit Diagnoses Diagnosis Tobacco dependence Tobacco use disorder documented in this encounter Additional Health Concerns Assessment Noted Time PHQ-9 Depression Total Score: 6 01/31/20 25 1:13 PM EDT documented as of this encounter Care Teams Regulatory Attorney Relationship Specialty Start Date End Date Rupinder Cronin MD [address] [place] [id number] PCP - General Family Medicine 07/22/18 Jani Pappas, PharmD [address] [place] [address] [phone] Pharmacist Pharmacy 04/14/25 documented as of this encounter
--- OUTSIDE RECORDS SUMMARY | 2025-06-11 10:34 | XMS_ITS | Encounter Summary ---
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 [address] [place] [address] Jani Pappsa, PharmD [address] [place] [address] documented as of this encounter Visit Diagnoses Not on filedocumented in this encounter Additional Health Concerns Assessment Noted Time PHQ-9 Depression Total Score: 6 01/31/20 25 1:13 PM EDT documented as of this encounter Care Teams [employer]ic Relationship Specialty Start Date End Date Rupinder Cronin MD [address] [place] [address] PCP - General Family Medicine 07/22/18 Jani Pappas, PharmD [address] [place] [id number] Pharmacist Pharmacy 04/14/25 documented as of this encounter
== END 2025-06-11 09:21 | disposition home or self-care (01) ==
LOC: HO.HHCL 09:20
PROVIDERS: PCP Internal Medicine; Visit Provider Internal Medicine
DX: Z13.89 Encounter for screening for other disorder (principal)

== ENCOUNTER 2025-06-12 09:11 | Outpatient (REF) | payer MEDICAID, SELFPAY | END 2025-06-12 09:12 | disposition home or self-care (01) | LOC: HO.HHCL 09:11 | PROVIDERS: PCP Internal Medicine; Visit Provider Internal Medicine | DX: R10.10 Upper abdominal pain, unspecified (principal) | CPT/HCPCS: 87338 ==

== ENCOUNTER 2025-08-21 18:04 | Emergency (ER) | payer MEDICAID, SELFPAY ==
--- NOTE | ~2025-08-21 | XR_ITS ---
CLINICAL HISTORY: prod cough 2 view chest x-ray Comparison: None provided Findings: Mild interstitial opacities nonspecific and may reflect pulmonary edema or pneumonitis given interstitial predominance. Mild/borderline cardiomegaly. Background emphysematous changes also suggested. Index nodular opacity measures 7 mm in the left lower lobe. Mild pleural thickening and/or septal thickening suggested. No definite pneumothorax or pleural effusion. Degenerative changes include imaged shoulders, AC joints, and imaged spine. IMPRESSION: Bilateral pulmonary opacities nonspecific and may reflect pneumonitis. Recommend attention on follow-up to ensure resolution particularly given 7 mm nodule in the left lower lobe. This document has been electronically signed by: Pedro Steinberg MD on 08/21/2025 19:45:48
[2025-08-21 18:28] VITALS: BP 106/67; PULSE 79; RESP 20; TEMP 36.8; O2SAT 95; BMI 26.0
--- NOTE | 2025-08-21 18:29 | ED.URI ---
HPI - URI/Sore Throat General Chief Complaint: Upper Respiratory Symptoms Stated Complaint: vomiting, headache, fever Time Seen by Provider: 08/21/25 21:38 Source: patient Mode of arrival: ambulatory Limitations: no limitations History of Present Illness ED Provider: Roxann Corley APRN HPI Narrative: 65-year-old male with a history of osteoarthritis, asthma presents the ER with complaints of 48 hours of headache, fever, chills, vomiting, cough. Patient denies any sick contacts or recent travel. Patient denies any chest pain, shortness breath, diarrhea, abdominal pain, skin rash, neck pain, neck stiffness. Related Data Home Medications ?Medication ?Instructions ?Recorded ?Confirmed albuterol sulfate 90 mcg/actuation 2 puff inhalation QID PRN Wheezing 11/17/20 11/12/24 aerosol inhaler fluticasone propionate 100 1 puff PO BID 11/17/20 11/12/24 mcg/actuation blister powder for inhalation (Flovent Diskus) tiotropium bromide 2.5 2 puff inhalation DAILY 11/17/20 11/12/24 mcg/actuation mist for inhalation (Spiriva Respimat) hydroxyzine HCl 25 mg tablet 1 tab PO DAILY PRN Anxiety 07/25/21 11/12/24 montelukast 10 mg tablet 1 tab PO QPM 07/25/21 11/12/24 Previous Rx's ?Medication ?Instructions ?Recorded bisacodyl 5 mg tablet 5 mg PO BEDTIME 2 days #2 tabs 11/22/20 polyethylene glycol 3350 17 17 g PO DAILY colon prep 1 day 11/22/20 gram/dose oral powder (Miralax) #238 grams bisacodyl 5 mg tablet,delayed 10 mg (2 x 5 mg) PO ONCE Bowel 06/12/22 release (Dulcolax (bisacodyl)) Preparation 1 day #2 tabs polyethylene glycol 3350 17 238 g PO ONCE 1 day #238 grams 06/12/22 gram/dose oral powder (Miralax) acetaminophen 500 mg tablet 500 mg PO Q6H PRN fever or pain 09/23/24 (Tylenol Extra Strength) #14 tabs naproxen 500 mg tablet 500 mg PO BID PRN pain 10 days #20 09/23/24 tabs celecoxib 200 mg capsule (Celebrex) 200 mg PO BID 30 days #60 caps 11/12/24 acetaminophen 325 mg tablet 650 mg (2 x 325 mg) PO Q4H PRN 08/21/25 (Tylenol) fever or pain #60 tabs azithromycin 250 mg tablet 250 mg PO DAILY 6 days #6 tabs 08/21/25 ibuprofen 600 mg tablet 600 mg PO Q6H PRN fever or pain 08/21/25 #30 tabs Allergies Allergy/AdvReac Type Severity Reaction Status Date / Time No Known Allergies Allergy Verified 08/21/25 18:32 Review of Systems Review of Systems: Yes all other systems are reviewed and are negative Constitutional: Constitutional: Reports no additional constitutional complaints, Denies body ache(s), Reports chills, Reports fever(s), Reports headache(s) and Denies weakness Eyes: Eyes: Reports no additional eye complaints and Denies change in vision ENT: Reports system reviewed and no additional complaints, except as documented, Denies dizziness, Reports headache(s), Denies nasal congestion, Denies nasal discharge and Denies neck pain Cardiovascular: Cardiovascular: Reports no additional cardiovascular complaints, Denies chest pain, Denies leg edema and Denies dyspnea Respiratory: Respiratory: Reports no additional respiratory complaints, Reports cough and Denies dyspnea Gastrointestinal: Gastrointestinal: Reports no additional gastrointestinal complaints, Denies abdominal pain, Denies diarrhea, Reports nausea and Reports vomiting Genitourinary: Genitourinary: Denies urinary incontinence Musculoskeletal: Musculoskeletal: Reports no additional musculoskeletal complaints, Denies back pain, Denies arthralgias, Denies joint swelling, Denies neck pain, Denies numbness and Denies tingling Integumentary/Breasts: Skin/Breast: Reports system reviewed and no additional complaints, except as docu and Denies rash Neurologic: Reports system reviewed and no additional complaints, except as documented, Denies Abnormal speech present, Denies dizziness, Reports headache(s), Denies numbness, Denies tingling and Denies weakness [facility] Past Medical History Attestation statement: The following information was validated with the patient. Source: old records reviewed and nursing notes reviewed Medical History COVID-19 vaccine series completed COPD (chronic obstructive pulmonary disease) Hyperlipidemia Liver fibrosis Depression Insomnia Hx of hepatitis Shortness of breath Surgical History No history of previous surgery Family History Family History Father Kidney disease Mother No problems noted. 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 Physical Exam Vital Signs: Vital Signs: Last Vital Signs Temp 99.4 F 08/21/25 22:09 Pulse 75 08/21/25 22:09 Resp 20 08/21/25 22:09 BP 131/62 08/21/25 22:09 Pulse Ox 94 08/21/25 22:09 O2 Del Method Room Air 08/21/25 22:09 BMI result Body Mass Index 26.0 Const: General: cooperative, healthy appearing, comfortable and no acute distress Orientation/consciousness: patient oriented x3 Limitations: no limitations HEENT: Head: Yes normal to inspection Ears: hearing grossly normal bilaterally and TM's normal bilaterally General nose exam: Normal external nose present Face and sinus: Yes normal facial exam Mouth: Normal oral and palatal mucosa present Throat: Yes posterior oropharynx normal, Yes tonsils normal and Yes uvula midline Eyes: General: appearance normal, both eyes and all related structures Pupils: Equal, round and reactive pupils present Neck: Neck: Yes normal visual inspection, Yes full ROM, Yes no lymphadenopathy and Yes no meningeal signs Chest: Chest palpation & inspection: normal inspection of the chest Resp: Effort & Inspection: normal respiratory effort Auscultation: clear to auscultation bilaterally Cardio: Rate: regular rate Rhythm: regular rhythm Peripheral pulses: Peripheral pulses 2+ throughout GI: Inspection: Yes normal to inspection Palpation (GI): Soft to palpation and nontender Auscultation: normal bowel sounds Back/Spine/Pelvis: Thoracic/Lumbar Spine: thoracic and lumbar spine normal to inspection Skin: General skin exam: no rashes or lesions noted Neuro: General: patient oriented x3, no meningeal signs, no focal motor deficits and normal sensation to monofilament Cranial nerves: Yes Equal, round and reactive pupils present Cognition (Neuro): normal cognition Speech: No Abnormal speech present Gait exam (Neuro): Normal gait present Motor exam (neuro): 5/5 motor strength present throughout Extrem: General: Yes normal to inspection, Yes no calf tenderness and No edema Course Course Course Narrative: This is a Rapid Medical Exam performed in triage by Genna Baker PA-C. Full HPI, ROS and PE to be performed by primary ED provider. 65-year-old [place]-speaking male with a past medical history of asthma presenting to the ED c/o headache, fever, myalgias, nausea/vomiting, productive cough x3 days PE: NAD, nontoxic appearing, talking in complete sentences. Ambulating with steady gait Plan: Viral testing, rapid strep, CXR Medical Decision Making Medical Decision Making MDM Narrative: 65-year-old male with a history of osteoarthritis, asthma presents the ER with complaints of 48 hours of headache, fever, chills, vomiting, cough. Patient denies any sick contacts or recent travel. Patient denies any chest pain, shortness breath, diarrhea, abdominal pain, skin rash, neck pain, neck stiffness. Exam was benign Vitals are stable Reviewed viral testing, strep testing and chest x-ray ordered from triage Influenza a positive. Chest x-ray appears that the patient may have pneumonitis. There is also a 7 mm nodule that will need follow-up. There is no hypoxia or tachypnea. Patient is well-appearing, nontoxic. Reviewed findings with the patient with a planogrammer. Patient is aware that he will need to follow-up with his chest x-ray finding. We discussed Tamiflu. Patient declined treatment. Recommend supportive measures with Motrin, Tylenol, fluids at rest. Will also add an antibiotic for the chest x-ray finding. I did recommend he continue his albuterol home if needed. I reviewed worrisome signs and symptoms of when to return to the emergency room. Comfortable plan for discharge home. Differential Diagnosis Differential Diagnoses: The differential diagnosis associated with the presentation includes Influenza, viral syndrome, strep pharyngitis, AOM Admission/Observation Consideration of admission/observation: Escalation of care including admission/observation considered Influenza A-positive with no hypoxia or tachypnea requiring supplemental oxygen and or admission Lab Data MDM Lab Attestation statement: I reviewed the patient's lab results. Labs: Lab Results 08/21/25 Range/Units 18:42 Influenza Type A (PCR) POSITIVE A (Negative) Influenza Type B (PCR) NEGATIVE (Negative) RSV RNA Qual (PCR) NEGATIVE (Negative) SARS-CoV-2 RNA (RT-PCR) NEGATIVE (Negative) S. pyogenes GrpA CAROL Negative (Negative) Independent Interpretation I performed an independent interpretation of an: Plain X-Ray Interpretation: I independently reviewed the x-ray and agree with the radiology report Radiology Impression Discussion of test interpretation with radiology: I have reviewed the radiologist's reading. Radiologist Impression: [address] [address] XRay Report Signed Patient: Memo Machado MR#: [id number] : 1960 Acct:[id number] Age/Sex: 65 / M ADM Date: 08/21/25 Loc: .ED Attending Dr: Ordering Physician: Genna Baker Date of Service: 08/21/25 Procedure(s): XR chest 2V Accession Number(s): [id number] cc: Rupinder Cronin MD; Genna Baker~ Reason for Exam: prod cough CLINICAL HISTORY: prod cough 2 view chest x-ray Comparison: None provided Findings: Mild interstitial opacities nonspecific and may reflect pulmonary edema or pneumonitis given interstitial predominance. Mild/borderline cardiomegaly. Background emphysematous changes also suggested. Index nodular opacity measures 7 mm in the left lower lobe. Mild pleural thickening and/or septal thickening suggested. No definite pneumothorax or pleural effusion. Degenerative changes include imaged shoulders, AC joints, and imaged spine. IMPRESSION: Bilateral pulmonary opacities nonspecific and may reflect pneumonitis. Recommend attention on follow-up to ensure resolution particularly given 7 mm nodule in the left lower lobe. This document has been electronically signed by: Pedro Steinberg MD on 08/21/2025 19:45:48 Prescription Management I considered prescription management with: Antiviral Discharge Plan Discharge Clinical Impression: Influenza, Pneumonia Patient Disposition: Home, Self-Care Instructions: Influenza (ED), Pneumonia (ED) Additional Instructions: Alternate Motrin/tylenol for pain or fever Increase fluids, rest Your chest x-ray shows possible pneumonia. We are treating you with an antibiotic. It also shows a nodule. You need to follow-up with your PCP to have additional testing and make sure this isnt cancer. Prescriptions: New acetaminophen [Tylenol] 325 mg tablet 650 mg PO Q4H PRN (Reason: fever or pain) Qty: 60 0RF ibuprofen 600 mg tablet 600 mg PO Q6H PRN (Reason: fever or pain) Qty: 30 0RF azithromycin 250 mg tablet 250 mg PO DAILY 6 Days Qty: 6 0RF Rx Instructions: start on day 2 of therapy No Action bisacodyl 5 mg tablet 5 mg PO BEDTIME 2 Days Qty: 2 0RF polyethylene glycol 3350 [Miralax] 17 gram/dose powder 17 g PO DAILY 1 Days Qty: 238 0RF Rx Instructions: Mix Miralax with 64 oz(8 cups) of Crystal light. Take 2 tablets of Dulcolax qt 12 pm. Wait to have your 1st bowel movement, then begin drinking Miralax. Drink a glass of Miralax every 10-15 minutes until you are finished. You will drink at least another 4 cups of clear liquid of your choice over the next 2 hours. Please drink as many clear liquids as possible You may have clear liquids up to four hours before your procedure Flovent Diskus 100 mcg/actuation blister with device 1 puff PO BID albuterol sulfate 90 mcg/actuation HFA aerosol inhaler 2 puff inhalation QID PRN (Reason: Wheezing) Spiriva Respimat 2.5 mcg/actuation mist 2 puff inhalation DAILY montelukast 10 mg tablet 1 tab PO QPM hydroxyzine HCl 25 mg tablet 1 tab PO DAILY PRN (Reason: Anxiety) acetaminophen [Tylenol Extra Strength] 500 mg tablet 500 mg PO Q6H PRN (Reason: fever or pain) Qty: 14 0RF naproxen 500 mg tablet 500 mg PO BID PRN (Reason: pain) 10 Days Qty: 20 0RF bisacodyl [Dulcolax (bisacodyl)] 5 mg tablet,delayed release (DR/EC) 10 mg PO ONCE 1 Days Qty: 2 0RF Rx Instructions: Take 2 tablets at 12:00pm the day before your procedure, bowel prep polyethylene glycol 3350 [Miralax] 17 gram/dose powder 238 g PO ONCE 1 Days Qty: 238 0RF Rx Instructions: Take as directed by mouth, bowel prep celecoxib [Celebrex] 200 mg capsule 200 mg PO BID 30 Days Qty: 60 3RF Referrals: Rupinder Cronin MD [Primary Care Provider, Internal Medicine] Interventions: ED Discharge Assessment Last Done: 08/21/25 22:09 Discharge Date/Time: 08/21/25 22:10 Print Language: [place]
--- OUTSIDE RECORDS SUMMARY | 2025-08-21 18:47 | XMS_ITS | Clinical Summary ---
Author Organization [employer] Address [address] [facility] [address] [place] [address] Care Team Providers Care Cloth Winder Machine Operator Name Role Phone Rupinder Cronin MD Primary Care Provide r Jani Pappas PharmD Unavailable [phone] Allergies No known active allergies Medications Spacer/Aero-Holdin g Chambers (OptiChamber Shahnaz) misc 1 each every 4 (four) hours if needed (asthma). 1 each 4 Active atorvastatin (Lipitor) 40 MG tabletIndications: Hyperlipidemia, unspecified hyperlipidemia type TAKE 1 TABLET BY MOUTH EVERY DAY 90 tablet 1 5 Active albuterol (Ventolin HFA) 108 (90 Base) MCG/ACT inhalerIndications :Pulmonary emphysema (HCC) Inhale 2 puffs every 6 (six) hours if needed for wheezing. 18 g 2 5 Active Tiotropium [place] (Spiriva Respimat) 2.5 MCG/ACT aerosol solutionIndication s:Pulmonary emphysema (HCC) Inhale 2 puffs Once per day. INHALE 2 PUFFS BY MOUTH EVERY DAY 4 g 2 5 Active omeprazole OTC (PriLOSEC OTC) 20 MG EC tabletIndications: H. pylori infection Take 1 tablet (20 mg) by mouth before breakfast and before evening meal for 14 days. Do not crush, chew, or split. 28 tablet 5 Active montelukast (Singulair) 10 MG tabletIndications: Allergy, sequela TAKE 1 TABLET BY MOUTH EVERY DAY 90 tablet 2 5 Active varenicline (Chantix) 1 MG tabletIndications: Tobacco dependence TAKE 1 TABLET BY MOUTH TWICE DAILY WITH A FULL GLASS OF WATER 56 tablet 2 5 Active famotidine (Pepcid) 20 MG tabletIndications: Upper abdominal pain TAKE 1 TABLET BY MOUTH TWICE DAILY IN THE MORNING AND AT BEDTIME NEEDED FOR HEARTBURN 180 tablet Active Active Problems Problem Noted Date Diagnosed [...] her information regarding orthopedic referral ordered by 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 he is already on [...] Encounters Date Type Department Care Team Description 07/22/2025 10:30 AM EST Telemedicine [facility] [address] [place] [phone] Jani Pappas PharmMunir Tobacco dependence (Primary Dx) 07/16/2025 Refill [facility] [address] [place] [phone] Rupinder Cronin MD Upper abdominal pain 07/15/2025 Refill [facility] [address] [place] [phone] Jani Pappas PharmMunir Tobacco dependence 07/05/2025 Refill [facility] [address] [place] [address] Zac Pierre MD Allergy, sequela 06/24/2025 10:30 AM EDT Telemedicine [facility] [address] [place] [phone] Jani Pappas PharmD Tobacco dependence (Primary Dx) 06/16/2025 Orders Only [facility] [address] [place] [phone] Rupinder Cronin MD 06/16/2025 Results Follow-Up [facility] [address] [place] [phone] Rupinder Cronin MD Helicobacter pylori Antigen, EIA, Stool 06/08/2025 3:15 PM EDT Telemedicine [address] [phone] Rupinder Cronin MD Pulmonary emphysema (HCC) (Primary Dx); Dietary counseling; Exercise counseling; Chronic hepatitis C without hepatic coma (HCC); Upper abdominal pain 06/08/2025 Travel 06/05/[address] [phone] Rupinder Cronin MD Pulmonary emphysema (HCC) 05/27/2025 10:00 AM EDT Telemedicine [address] [phone] Jani Pappas, PharmD Smoker (Primary Dx) 05/23/[address] [phone] Rupinder Cronin MD Pulmonary emphysema, unspecified emphysema type (CMS/HCC) from Last 3 Months Immunizations Immunization Administration Dates Next Due Influenza injectable quadriv alent IIV4 with preservative 08/24/2022,08/11/2016,08/17/2015 Influenza injectable quadriv alent preservative free 05/23/2019 Influenza, Split (incl. marquis fied surface antigen) 07/12/2015 Pfizer Covid-19 Vaccine 12+ 11/23/2023, 2 Pneumococcal Conjugate PCV 13 08/30/2015 Pneumococcal Conjugate PCV 20 11/23/2023 Tdap 01/10/2018 Social History Tobacco Use Types Packs/Day Years Used Date Smoking Tobacco: Every Day Cigarettes 0.7 44 Started: 1981 Passive Smoke Exposure: Past Smokeless [...] 01/30/2025 1:13 PM EDT Plan of Treatment Health Maintenance Due Date Last Done Comments CT Colonography 1961 Colonoscopy 1961 FIT 1961 Sigmoidoscopy 1961 Hepatitis A Vaccines (1 of 2 - Risk 2-dose series) 1980 Lung Cancer Screening 2011 RSV Patients and Patients Aged 60 years or older (1 - Risk 50-74 years 1-dose series) 2011 Zoster Vaccines (1 of 2) 2011 Hepatitis B Vaccines (1 of 3 - Risk 3-dose series) 2021 FOBT 02/16/2025 02/17/2024 COVID-19 Vaccine ( season) 2025 11/23/2023, 08/24/2022, 09/02/2021 Influenza Vaccine (#1) 2025 , 05/23/2019, 08/11/2016, Additional history exists SDOH Screening 01/21/2026 01/21/2025 Depression Screening 01/30/2026 01/30/2025, 01/31/20 25 Disability Screening 01/30/2026 01/30/2025 Alcohol/Substance Use Screening 06/08/2026 06/08/2025 Tobacco Screening 06/24/2026 06/24/2025 Colorectal Cancer Screening 02/16/2027 FIT DNA/Cologuard 02/16/2027 [...] Procedure Name Priority Date/Time Associated Diagnosis Comments HELICOBACTER PYLORI AG, EIA, STOOL Routine 06/10/2025 8:38 PM EDT Upper abdominal pain LAB COLOGUARD COLON CANCER SCREEN Routine 02/17/2024 11:08 AM EDT Colon cancer screening LIPID PANEL, STANDARD Routine 12/24/2023 9:47 AM EDT Chronic hepatitis C without hepatic coma (CMS/HCC) Hepatic fibrosis HIV 1/2 ANTIGEN/ANTIBODY, FOURTH GENERATION W/RFL Routine 03/08/2022 2:33 PM EDT from Last 3 Months or Most Recently Relevant to Health Maintenance Results * (ABNORMAL) Helicobacter pylori??Antigen, EIA, Stool (06/10/2025 8:38 PM EDT) H pylori Ag Stool SEE NOTE(A) [facility] Comment:HELICOBACTER PYLORI AG, EIA, STOOL Micro Number: [id number] Test Status: Final Specimen Source: Stool Specimen Quality: Adequate H.pylori Ag: Detected Reference Range: Not DetectedTHIS TEST WAS PERFORMED AT:[facility] [place] [phone] ANGEL MD Stool Rectal contents / Unknown 06/10/2025 8:38 PM EDT 06/12/2025 11:24 AM EDT us Rupinder Snider MD LAB BODY FLUIDS AND S TOOLS ORDERABLES Final Result [facility] [address] [place] [phone] * Cologuard?? colon cancer screening (02/17/2024 11:08 AM EDT) Cologuard Result Negative Negative 02/27/20 24 1:22 AM EDT [facility] (CLIA #:[id number]) Comment: NEGATIVE TEST RESULT. A negative Cologuard [...] Murray. et al, N Engl J Med 2014;370(14):5787-0887) The normal value (reference range) for this assay is negative. COLOGUARD RE-SCREENING RECOMMENDATION: Periodic colorectal cancer screening is an important part of preventive healthcare for asymptomatic individuals at average risk for colorectal cancer. Following a negative Cologuard result, the [employer] and U.S. Multi-Society Task Force screening guidelines recommend a Cologuard re-screening interval of 3 years. References: [place] [employer] Guideline for Colorectal Cancer Screening: https://www.cancer.org/cancer/oyfii-yombxf-ncmywe/aqadkswlp-fbnqqfxjh-usijdfp/ac s-rec ommendations.html.; Gt FISCHER, Aidee SILVER, Sarkis LyleK, Colorectal Cancer Screening: Recommendations for Physicians and Patients from the U.S. Multi-Society Task Force on Colorectal Cancer Screening , Am J Gastroenterology 2017; 112:7908-1647. TEST DESCRIPTION: Composite algorithmic analysis of stool [...] Haas et al, N Engl J Med 2014;370(14):7904-4485.) Cologuard may produce a false negative or false positive result (no colorectal cancer or precancerous polyp present at colonoscopy follow up). A negative Cologuard test result does not guarantee the absence of CRC or advanced adenoma (pre-cancer). The current Cologuard screening interval is every 3 years. ([place] [employer] and U.S. Multi-Society Task Force). Cologuard performance data in a 10,000 patient pivotal study using colonoscopy as the reference method can be accessed at the following location: www.[employer]results. Additional description of the Cologuard test process, warnings and precautions can be found at www.As It Isrd.com. Stool specimen (specimen) Rectal contents / Unknown 02/17/2024 11:08 AM EDT 02/19/2024 2:34 PM EDT Rupinder Snider MD LAB MOLECULAR DIAGNOS TICS ORDERABLES Final Result [facility] (CLIA #:[id number]) [place] [address], * (ABNORMAL) Lipid Panel, Standard (12/24/2023 9:47 AM EDT) Triglycerides 127 <150 mg/dL [facility] Comment:Desirable Triglyceri de: less than 150 mg/dLBorderline High Triglyceride 150-199 mg/dLHigh Triglyceride: 200-499 mg/dLVery High Triglyceride: greater than or equal to 5OO mg/dL Cholesterol 239(H) <200 mg/dL [facility] Comment:Desirable Cholestero l: less than 200 mg/dLBorderline High Cholesterol: 200-239 mg/dLHigh Cholesterol: greater than 239 mg/dL LDL Cholesterol Calculated 169(H) <100 mg/dL [facility] Comment:Desirable LDL: less than 100 mg/dLNear Optimal/Above Optimal LDL: 110- 129 mg/dLBorderline High LDL: 130-159 mg/dLHigh LDL: 160-189 mg/dLVery High LDL: greater than or equal to 190 mg/dL HDL Cholesterol 45 >40 mg/dL [facility] Comment:Desirable HDL: great er than 40 mg/dL Note: This HDL assay may give artificially low results in patients with liver disease. Blood Venous blood specimen / Unknown 12/24/2023 9:47 AM EDT 12/24/2023 11:39 AM EDT Rupinder Snider MD LAB BLOOD ORDERABLES Final Result [facility] [address] [place] [phone] * HIV 1/2 ANTIGEN/ANTIBODY,FOURTH GENERATION W/RFL (03/08/2022 2:33 PM EDT) [facility] HIV-1/2 ANTIGEN AND ANTIBODIES, 4TH GENERATION W/ REFLEX NON-REACT RUBI NON-REACT RUBI [facility] Comment: HIV-1 antigen and [...] purpose. For additional information please refer to http://education.[employer]etU/faq/EBS422 (This link is being provided for informational/ educational purposes only.) The performance of this assay has not been clinically validated in patients less than 2 years old. 03/08/2022 2:33 PM EDT Rupinder Snider MD LAB BLOOD ORDERABLES Final Result [facility] [address] [place] [address], from Last 3 Months or Most Recently Relevant to Health Maintenance Insurance [employer] Care Teams Cloth Winder Machine Operator Relationship Specialty Start Date End Date Rupinder Cronin MD [address] [place] [address] PCP - General Family Medicine 07/22/18 Jani Pappas, PharmD [address] [place] [address] Pharmacist Pharmacy 04/14/25
--- OUTSIDE RECORDS SUMMARY | 2025-08-21 18:47 | XMS_ITS | Encounter Summary ---
Author Organization [email or web address] Address [address] [facility] [address] [place] [address] Care Team Providers Care Systems Librarian Name Role Phone Rupinder Cronin MD Primary Care Provide r Jani Pappas PharmD Unavailable [phone] Reason for Visit * Reason Comments Med Refill Encounter Details Date Type Department Care Team (Late st Contact Info) Description 05/06/2025 Refill [facility] [address] [place] [address] Rupinder Cronin MD [address] [place] [address] Tobacco dependence Social History Tobacco Use Types Packs/Day Years Used Date Smoking Tobacco: Every Day Cigarettes 0.8 44 Started: 1981 Passive Smoke Exposure: Past [...] documented as of this encounter Care Teams Systems Librarian Relationship Specialty Start Date End Date Rupinder Cronin MD [address] [place] [address] PCP - General Family Medicine 07/22/18 Jani Pappas, PharmD [address] [place] [address] Pharmacist Pharmacy 04/14/25 documented as of this encounter
[2025-08-21 19:09] LABS: Strep A Nucleic Acid Negative (Negative)
[2025-08-21 19:49] LABS: Resp Syncy Virus RNA Qual PCR NEGATIVE (Negative); SARS COV2 PCR INHOUSE NEGATIVE (Negative)
[2025-08-21 21:49] VITALS: BP 131/62; PULSE 75; RESP 20; TEMP 37.4; O2SAT 94
[2025-08-21 22:09] VITALS: BP 131/62; PULSE 75; RESP 20; TEMP 37.4; O2SAT 94
== END 2025-08-21 22:10 | disposition home or self-care (01) ==
PROVIDERS: Physician Assistant; Emergency Provider Emergency Medicine; PCP Internal Medicine
DX: J10.1 Influenza due to other identified influenza virus with other respiratory manifestations (principal); R51.9 Headache, unspecified; R50.9 Fever, unspecified; R11.2 Nausea with vomiting, unspecified; R05.9 Cough, unspecified
CPT/HCPCS: 71046; 87637; 87651; 99282; 99283

== ENCOUNTER → 2025-08-21 18:31 | Outpatient (BNV) | payer MEDICAID, SELFPAY | PROVIDERS: PCP Internal Medicine; Visit Provider Radiology Neuroradiology | DX: R05.9 Cough, unspecified (principal) | CPT/HCPCS: 71046 ==